=== PATIENT | female | born 1960 | race Caucasian/White ===

== ENCOUNTER 2022-01-24 21:54 | Inpatient (IN) | payer BC, MEDICARE ==
[~2022-01-24] VITALS: Ht 165.1 cm; Wt 84.1 kg
--- OUTSIDE RECORDS SUMMARY | 2022-01-24 21:58 | XMS ---
PreManage Notification: JOSE ANTONIO COY [employer] Associate Events No recent Security Events currently on file CRITERIA MET - PDMP CARE PROVIDERS RUCHI FINK [facility] Current PHONE: Unknown Karan has no Care Guidelines for this patient. EDelia VISIT COUNT (12 MO.) 1 GRACIELA Liang TOTAL 1 NOTE: Visits indicate total known visits. ED/UCC VISIT TRACKING (12 MO.) 01/24/2022 21:55 GRACIELA Dempsey OR TYPE: Emergency COMPLAINT: - RIGHT SIDE FLANK PAIN, SOB INPATIENT VISIT TRACKING (12 MO.) No inpatient visits to display in this time frame [email or web address]
[2022-01-24] MEDS ORDERED: TRAMADOL HCL50 MG PO (22:21)
[2022-01-24] MEDS ORDERED: BENZONATATE100 MG PO (22:21)
[2022-01-24] MEDS ORDERED: ATORVASTATIN CA20 MG PO (22:21)
[2022-01-24] MEDS ORDERED: CELECOXIB200 MG PO (22:21)
[2022-01-24] MEDS ORDERED: TOPIRAMATE25 MG PO (22:21)
[2022-01-24] MEDS ORDERED: OMEPRAZOLE20 MG PO (22:21)
[2022-01-25] MEDS ORDERED: VENTOLIN HFA18 GM INH (01:37)
[2022-01-25] MEDS ORDERED: AZITHROMYCIN500 MG PO (01:37)
--- NOTE | 2022-01-25 04:35 | NUR ---
PT ARRIVED TO [facility] AT 0319. PRADIP DUGAN WAS IN ROOM AND ASSISTED HER TO THE BSC WITH FWW. VS TAKEN AND PT IS ON TELE. PT IS ON 1LNC. 0422-RETURNED TO ROOM TO ADMINISTER IV ABX AND OXYCODONE FOR 8/10 BACK PAIN. ALSO ADMINISTERED ROBITUSSIN FOR COUGH COUGH IS CAUSING HER PAIN. PT IS UNABLE TO TAKE DEEP BREATHS IN AND OUT D/T THE PAIN. RR IS EVEN AND UNLABORED BUT PT STATES SHE FEELS SOB. SHE IS ON 1LNC AT 97%, WILL LEAVE ON O2 AT THIS TIME FOR COMFORT. PT DENIES FURTHER NEEDS AT THIS TIME. CALL LIGHT IS CLOSE AND IV IS INFUSING FINE.
--- NOTE | 2022-01-25 05:15 | NUR ---
PT STATED THAT IT WAS OK FOR PT SON DARRON, AND DAUGHTER SHAYLA TO VISIT WITH STAFF ABOUT HER MEDICAL CARE. PT AWARE THAT THE VISITING POLICY IS 2 VISITORS AT A TIME, BUT THE 2 VISITORS CAN CHANGE OUT THROUHOUT THE DAY. CONCERNED ABOUT HER APPOINTMENT WITH DR FISHMAN TODAY AT 2:45. WILL LET MORNING CHARGE KNOW TO CALL OFFICE. ALSO HAS APPOINTMENT WITH DR RANGEL 02/02/22. NO OTHER NEEDS, CALL LIGHT WITHIN REACH.
--- NOTE | 2022-01-25 05:21 | NUR ---
PRADIP BED MACHINE OPERATOR ADMINISTERED TRAMADOL FOR PAIN.
--- NOTE | 2022-01-25 06:43 | NUR ---
IN ROOM TO CHECK ON PT, SHE WAS GETTING UP TO BSC WITH HELP OF DIEGO PRUITT. IV ABX WAS COMPLETE, SL PT'S IV.
--- NOTE | 2022-01-25 07:40 | NUR ---
RECD REPORT FROM NIGHT RN, PT. RESTING BUT WAKENS EASILY, ASSISTED TO STAND AT EDGE OF BED, 1 PERSON ASSIST WITH GRADUATED CYLINDER FOR URINATION, INDEPENDENT BACK TO BED. BIPAP IN PLACE.
[2022-01-25] MEDS ORDERED: ADULT ASPIRIN R81 MG PO (07:52)
--- NOTE | 2022-01-25 11:00 | NUR ---
NO BED ALARM NEEDED, PT. CALLS FOR ALL NEEDS AND ASSIST. HE SWITCHES FROM BIPAP TO 3 L NC AND BREATHING IS UNLABORED WHEN STILL. DYSPNEA ON EXERTION BUT MAINTAINING. SATS WNL.
--- NOTE | 2022-01-25 11:37 | NUR ---
PATIENT UP TO AMBULATE TO BATHROOM WITH SBA. WARM PACK TO LEFT GROIN.
--- NOTE | 2022-01-25 15:11 | NUR ---
Spoke with Shania and her spouse, Abraham. She is very disheartened as she states she has been declining post her diagnosis of cancer. She was walking, then needed to use a walker, now so painful she requires a wc. She is also upset as she states two new places of cancer were found with a CT when she came in. Pt states she has been trying to get into Dr. Hernandez, Dr. Evangelista, and Dr. Avendano since September. There was a mistake at the PCP office and referrals were not correct. Pt had an appt with Dr. Evangelista today, but she is hospitalized. Dr. Sapp aware and requested Dr. Evangelista see pt in the hospital and he agreed. Pt states she was told by a friend Dr. Avendano is not doing total hips, I let her know that isn't correct. I texted Dr. Avendano he replied he does total hips every Sunday. Pt was pleased as did not want to be referred to [place]. Pt has appts with Dr. Avendano and Dr. Hernandez this month.
--- NOTE | 2022-01-25 16:52 | NUR ---
PT. C/O BREAKTHROUGH PAIN AND SPASMS IN HER LEFT HIP/BACK AREA. RECENT NORCO GIVEN, NO ADDITIONAL PAIN MEDS OTHER THEN ULTRAM TCT DR. MUÑOZ TO REPORT, HE WILL REVIEW AND PLACE ORDERS
--- NOTE | 2022-01-25 17:32 | NUR ---
ORDERS RECD. , PAIN HAS INCREASED IN HER RIGHT FLANK/BACK AREA, HEAT WAS PLACED TO THE AREA, PT. DID TRY AMBULATING IN THE HALLS WITH FAMILY, IT DID NOT MAKE THE PAIN WORSE OR BETTER, FAMILY ASSISTED BACK TO BED AND THEN THE PT. BEGAN TO HAVE SPASMS IN HER RIGHT LOWER BACK AREA, GAVE TORADOL 15 MG IV, SPASMS CONTINUED AND THE SPASMS CONTINUED, SHE TRIED REPOSITIONING AND THIS DID NOT HELP. GAVE ADDITIONAL OXYCODONE 5 MG PO FOR RIGHT LOWER BACK PAIN AND SPASMS. FAMILY AT BEDSIDE. IV ABX GIVEN THIS SHIFT. PT. IS ALERT AND VERY STOIC WITH PAIN. SHE HAS NOT HAD AN APPETITE FOR SOME TIME NOW BUT DENIES NAUSEA. REFUSED ALL 3 MEALS BUT SHE CAN EAT WHAT HER FAMILY WILL BRING HER.
--- NOTE | 2022-01-25 19:10 | NUR ---
SHIFT REPORT RECEIVED FROM DAYSHIFT RN JOHN AT BEDSIDE, pt AWAKE AND RESTING IN BED. IN ROOM, NO NEEDS OR CONCERNS VERBALIZED. CALL LIGHT IN REACH. ON RA, RR EVEN AND UNLABORED. NO DISTRESS NOTED. WILL MONITOR.
--- NOTE | 2022-01-25 22:39 | NUR ---
ASSESSMENT COMPLETE, pt AWAKE AND RESTING IN BED. REPORTS SOME BACK PAIN R/T MUSCLE SPASMS, HEAT PACK IN PLACE. pt DENIES NAUSEA, BOWEL TONES ACTIVE. IV ABX INFUSING DIRECTED, IV SITE WNL. BLOOD RETURN NOTED. VSS, pt DENEIS NEED TO VOID. WILL MONITOR. CALL LIGHT IN REACH. pt DENEIS LIGHTHEADEDNESS AND DIZZINESS WITH MOVEMENT. DAUGHTER REMAINS IN ROOM AND CALL LIGHT IN REACH.
--- NOTE | 2022-01-25 23:00 | NUR ---
pt CONTINUES TO REPORT BACK PAIN R/T MUSCLE SPASMS. DR MUÑOZ UPDATED ON pt'S TOTAL OUTPUT AND INPUT FOR DAYSHIFT UP TO THIS POINT IN TIME WELL pt's WEIGHT. TELEPHONE ORDERS READ BACK FOR IV FLUIDS LACTATED RINGERS @ 75MLS/HR CONTINUOUSLY AND 5MG PO FLEXERIL Q8HPRN FOR MUSCLE SPASMS-DISCUSSED CONFLICTS WITH DAPHNEY FROM [employer].
--- NOTE | 2022-01-25 23:45 | NUR ---
PRN NAUSEA MEDICATION GIVEN ALONG WITH PRN FLEXERIL AND IV MAINTENANCE FLUIDS HUNG AND INFUSING DIRECTED. IV SITE WNL, DAUGHTER IN ROOM. RECENT OUTPUT OF 100MLS.
--- NOTE | 2022-01-26 01:12 | NUR ---
ROUNDED ON pt, pt RESTING IN BED WITH EYES CLOSED. RR EVEN AND UNLABORED, ON RA. DAUGHTER IN ROOM, DENIES NEEDS OR CONCERNS. CALL LIGHT IN REACH.
--- NOTE | 2022-01-26 02:15 | NUR ---
IN TO GET VITALS, ALERTED RN TO LOWER SPO2 READING, RN PROVIDED PT WITH O2, HEAT PACK PROVIDED, NO FURTHER NEEDS AT THIS TME
--- NOTE | 2022-01-26 03:00 | NUR ---
INFORMED BY CAREER INFORMATION SPECIALIST, SPO2 IN 80'S, IN ROOM TO ASSESS. APPEARS pt HAS ON GEL/FALSE NAILS, pt PLACED ON 6LNC. pt AWOKE EASILY TO VOICE. ENCOURAGED DEEP BREATHING, pt VERBALIZED UNDERSTANDING. pt RETURNED TO SLEEP, AFTER A FEW MINUTES, COUGING WAS NOTED AND pt REPORTS RETURN OF BACK PAIN/SPASM. CPOX IN PLACE TO TOE AND pt PLACED BRIEFLY ON OXYMASK D/T ANXIETY. pt SITTING UP ON EDGE OF BED, RITCHIE EVERETT ALSO IN ROOM. pt RETURNED TO BASELINE, THERAPEUTI COMMUNICATION PROVIDED AND DAUGHTER AT BEDSIDE. pt BACK IN BED AFTER SEVERAL MINUTES, DENIES NEED TO VOID. 2LNC IN PLACE D/T DESATS W/ PAIN MEDICATION. BALDDER SCANNED FOR 99MLS. PRN PAIN MEDICAITON GIVEN, SEE EMAR.
--- NOTE | 2022-01-26 04:00 | NUR ---
DR MUÑOZ MADE AWARE OF pt'S URINE OUTPUT THIS SHIFT AND BLADDER SCAN RESULT, TELEPHONE ORDER READ BACK TO TITRATE MAINTENANCE FLUIDS FROM 75MLS/HR TO 125MLS/HR, GIVE X1 500MLS BOLUS OF LR OVER 1 HR, TIRATE PRN FLEXERIL TO 10MGPO Q8HPRN, AND OKAY TO GIVE LIDOCAINE PATCH DAILY STARTING NOW.
--- NOTE | 2022-01-26 04:34 | NUR ---
WHILE IN ROOM TO HANG IV FLUID BOLUS, pt UP TO VOID. 175MLS CONCENTRATED YELLOW URINE NOTED. pt BACK TO BED, 2LNC REMAINS IN PLACE. AFTER STARTING IV BOLUS, IV SITE WAS NOTED TO BE LEAKING, HUB TIGHTENED AND NEW DRESSING PLACED. LEAKING CONTINUED, pt REPORTS "VERY HARD" IV START, DYE WINCH OPERATOR MONCHO TO ATTEMPT NEW IV. LIDOCAINE PATCH TO RIGHT LOWER BACK AT THIS TIME. pt TIRATED TO 3LNC D/T SPO2 IN 89%, WILL MONITOR.
--- NOTE | 2022-01-26 06:00 | NUR ---
NEW IV PLACED BY MONCHO DUGAN. 22 G TO RIGHT HAND, IV ABX RESUMED. IV SITE WNL. CALL LIGHT IN REACH AND HEAT PACK IN PLACE. PER pT REQUEST.
--- NOTE | 2022-01-26 06:29 | NUR ---
ROUNDED ON pt, pt AWAKE AND RESTING IN BED. IV SITE REMAINS WNL. NO NEEDS OR CONCERNS VERBALIZED, CALL LIGHT IN REACH.
--- NOTE | 2022-01-26 06:58 | NUR ---
DR MUÑOZ MADE AWARE OF pt's TOTAL URINE OUTPUT FOR SHIFT, TOTAL OUTPUT 175MLS. PER WEIGHT PARAMETERS, pt TO VOID 504MLS. NO NEW ORDERS RECEIVED AT THIS TIME.
--- NOTE | 2022-01-26 07:32 | NUR ---
pt RESTING IN BED, 2-2.5LNC IN PLACE, SPO2 MID 90'S, HR WNL. MAINTENANCE FLUIDS RESUMED WITH NEW IV RATE (125MLS/HR), IV SITE REMAINS WNL. CALL LIGHT IN REACH.
--- NOTE | 2022-01-26 08:41 | NUR ---
MORNING ASSESSMENT COMPELTED, PT C/O BACK SPASMS AND HIP PAIN, REQUESTED FLEXERIL. MED GIVEN WITH SIP OF WATER, OK'D WITH OR CHARGE NURSE. WENT OVER PROCEDURE CONSENT FORM, PT SIGNED. PT DENIES FURTHER NEEDS AT THIS TIME. CALL LIGHT WITHIN REACH.
[2022-01-26] MEDS ORDERED: VENTOLIN HFA18 GM INH (09:43)
--- NOTE | 2022-01-26 11:50 | NUR ---
01/26/22 1150 Kassidy Malloy 1144 PATIENT ARRIVES TO PACU AWAKE BUT DROWSY, COUGHING. RESP SLIGHTLY LABORED WITH COUGH. MASK AT 10 LITERS. 1148 PATIENT CONTINUES TO COUGH, BUT IMPROVING. RESP CONTINUE TO BE SLIGHTLY LABORED, MASK DECREASED TO 6 LITERS, SATS 99%. PATIENT DENIES PAIN.
--- NOTE | 2022-01-26 12:31 | NUR ---
PT BACK TO ROOM FOR OR, ALERT AND ORIENTED. VS STABLE. CALL LIGHT WITHIN REACH.
--- NOTE | 2022-01-26 14:17 | NUR ---
CHECKING ON PT-RT AYE IN RM GIVING BREATHING TREATMENT. WILL CHECK BACK
--- NOTE | 2022-01-26 14:55 | NUR ---
PT. DENIES SOB. SHE C/O BACK SPASMS THAT ARE TOLERABLE AT THIS TIME. ON 4L NC AND O2 SAT IS 94%. RR IS 20. TOLERATING PO FLUIDS FAMILY AT BEDSIDE. PT. DENIES FURTHER NEEDS.
--- NOTE | 2022-01-26 15:46 | NUR ---
PT RESTING QUIETLY IN BED, EASILY AWAKENS. OCCASIONAL COUGH, DENIES SOB. DENIES NEEDS AT THIS TIME. CALL LIGHT WITHIN REACH.
--- NOTE | 2022-01-26 16:07 | NUR ---
PT RESTING IN BED, AWAKE AND ALERT, VISITING WITH FAMILY. REQUESTING FLEXERIL FOR MUSCLE SPASMS. DENIES FURTHER NEEDS AT THIS TIME. CALL LIGHT WITHIN REACH.
--- NOTE | 2022-01-26 16:15 | NUR ---
Attempted to see pt, Dr. Del Toro in with pt.
--- NOTE | 2022-01-26 17:31 | NUR ---
PT SITTING UP IN BED, VISITING WITH FAMILY. ASSISTED TO RESTROOM. DENIES FURTHER NEEDS AT THIS TIME.
--- NOTE | 2022-01-26 17:38 | NUR ---
PT IS SITTING UP IN BED WATCHING TV. I&O AND VS CHARTED CALL LIGHT WITHIN REACH NO FURTHER TASKS AT THIS TIME
--- NOTE | 2022-01-26 18:22 | NUR ---
MED REC COMPLETE
--- NOTE | 2022-01-26 19:20 | NUR ---
SHIFT REPORT RECEIVED FROM DAYSHIFT RN SERA AND JOCELYN, pt RESTING QUIETLY IN BED ON 3.5LNC, CPOX IN PLACE. SPO2 92-93%, HR 79. RR EVEN AND UNLABORED, NO DISTRESS NOTED. IV SITE SALINE LOCKED, IN ROOM. CALL LIGHT IN REACH.
--- NOTE | 2022-01-26 20:23 | NUR ---
SCHEDULED IV ABX INFUSING DIRECTED, IV SITE WNL. NO FURTHER NEEDS OR CONCERNS. CALL LIGHT IN REACH AND FAMILY IN ROOM.
--- NOTE | 2022-01-26 21:40 | NUR ---
ASSESSMENT COMPLETE, SCHEDULED MEDS GIVEN (SEE EMAR). pt AWOKE TO VOICE, 4LNC IN PLACE- TITRATED TO 3LNC. BEDSIDE CPOX ON, LUNG SOUNDS CLEAR WITH SOME LIGHT SCATTERED WHEEZES. RT NILAM IN ROOM FOR SCHEDULED BREATHING TREATMENT, NO DISTRESS NOTED. RR EVEN AND UNLABORED, VSS. pt DENEIS PAIN AND NAUSEA, DENIES NEED FOR BOTH PAIN AND NAUSEA MEDICATION AT THIS TIME. WILL MONITOR. NO FURTHER NEEDS, IV SITE WNL AND FLUSHES EASILY. SALINE LOCKED. DAUGHTER ALSO REMAINS IN ROOM, FRESH WATER PROVIDED, CALL LIGHT IN REACH.
--- NOTE | 2022-01-26 23:30 | NUR ---
scheduled flexeril given, see emar. pt awoke to voice, sba with fww to void and back to bed. voided 100mls and had unmeasured void x1. cpox in place, spo2 mid 90's on 2.5lnc, hr wnl. call light in reach.
--- NOTE | 2022-01-27 01:11 | NUR ---
ROUNDED ON pt, pt AWAKE AND WATCHING TV. SPO2 LOW 90'S ON 2.5LNC, HR 70'S. NO DISTRESS NOTED, NEW HEAT PACK TO LEFT THIGH PER pt REQUEST FOR REPORTED 7/10 "JOINT PAIN", pt DENIES NEED FOR PHARMACOLOGICAL INTERVENTION. CALL LIGHT IN REACH.
--- NOTE | 2022-01-27 01:54 | NUR ---
CALL MADE TO EDILSON FROM IMAGING REGARDING SCHEDULED BODY SCAN IN AM, PER MARY- pt CAN EAT AND DRINK TOLERATED. NO MINIMUM INTAKE REQUIRED BEFORE SCAN. POST SCAN, pt IS TO DRINK APPROX 1 LITER OF FLUID.
--- NOTE | 2022-01-27 02:00 | NUR ---
in to get vital with rn, water topped off, no further needs
--- NOTE | 2022-01-27 02:17 | NUR ---
SCHEDULED IV ABX INFUSING DIRECTED. IV SITE WNL, FLUSHES EASILY. pt DENEIS PAIN AND NAUSEA, NO NEEDS OR CONCERNS AT THIS TIME. CALL LIGHT IN REACH, pt DENIES NEED TO VOID. WILL MONITOR.
--- NOTE | 2022-01-27 03:24 | NUR ---
iv pump alarming, iv abx completed and pump cleared. iv site wnl, saline locked. pt up sba with fww to void, 400mls output noted. pt then brushed teeth and went back to bed- all on ra. spo2 low 90's. 2lnc back in place d/t desating when asleep. daughter remains at bedside. call light in reach. warm blanket and fresh water provided.
--- NOTE | 2022-01-27 05:03 | NUR ---
VSS AND I&O'S COMPLETE. pt ON 2LNC, RR EVEN AND UNLABORED. FRESH WATER PROVIDED AND CALL LIGHT IN REACH. DAUGHTER ALSO REMAINS IN ROOM.
--- NOTE | 2022-01-27 06:30 | NUR ---
SCHEDULED FLEXERIL GIVEN, SEE EMAR. pt UP TO VOID SBA WITH FWW AND BACK TO BED. STEADY ON FEET. 2LNC RESUMED AND CALL LIGHT IN REACH.
--- NOTE | 2022-01-27 08:22 | NUR ---
MORNING ASSESSMENT COMPLETE. PT AWAKE AND ALERT VISITING WITH FAMILY. C/O 6/10 PAIN IN BACK AND LEFT HIP. GIVEN PAIN MEDICATIONS. DENIES FURTHER NEEDS AT THIS TIME. CALL LIGHT WITHIN REACH.
--- NOTE | 2022-01-27 10:39 | NUR ---
PT RESTING QUIETLY IN BED. EASILY AWAKENS. AT BEDSIDE. DENIES NEEDS AT THIS TIME. CALL LIGHT WITHIN REACH.
--- NOTE | 2022-01-27 11:23 | NUR ---
INFORMED STATED WHILE PT SLEPT ON RA O2 SAT DROPPED TO 83% FOR 3 MINUTES UNTIL PT AWOKE SATS THEN UP TP 92%. WHILE IN PT ON RA O2 SATS 90%. HAD PT PUT NC 2LPM ON, O2 SATS 93%. HOME O2 QUALIFY ALREADY ORDERED.
--- NOTE | 2022-01-27 16:02 | NUR ---
FACESHEET, RX FOR OXYGEN, O2 QUALIFIER, H&P AND PROGRESS NOTES FAXED TO [facility].
[2022-01-27] MEDS ORDERED: AMOX TR-K CLV1 EAC1 PO (16:06)
[2022-01-27] MEDS ORDERED: CYCLOBENZAPRINE10 MG PO (16:07)
[2022-01-27] MEDS ORDERED: HYDROMORPHONE HC4 MG PO (16:10)
[2022-01-27] MEDS ORDERED: BENZONATATE100 MG PO (16:14)
--- NOTE | 2022-01-27 17:18 | EKG ---
[facility] [address] [facility] [place] [address] Signed Sinus rhythm with occasional premature ventricular complexes Right superior axis deviation Right ventricular hypertrophy ST \T\ T wave abnormality, consider anterior ischemia Abnormal ECG No previous ECGs available Confirmed by JOLIE MUÑOZ MD ([id number]) on 01/27/2022 5:18:39 PM Electronically Signed By: JOLIE MUÑOZ MD 01/27/22 1718 PATIENT NAME: JOSE ANTONIO COY Electrocardiogram DATE OF : 58 PHYSICIAN: JOLIE MUÑOZ MD REPORT #: [id number] REPORT IS CONFIDENTIAL AND NOT TO BE RELEASED WITHOUT AUTHORIZATION
--- NOTE | 2022-01-27 18:20 | NUR ---
WENT OVER DISCHARGE INSTRUCTIONS. PT AND FAMILY VERBALIZED UNDERSTANDING, ALL QUESTIONS ANSWERED. IV REMOVED, CATHETER INTACT. INSTRUCTED PT AND FMAILY ON O2 TANK USE, VERBALIZED UNDERSTANDING. PT TAKEN OUT VIA WC WITH RN.
--- NOTE | 2022-01-27 21:14 | CONS ---
[facility] [address] [place], [place] [address] Signed DATE OF CONSULTATION: 01/25/2022 REQUESTING PHYSICIAN: Dr. Sapp. PROBLEM: Recently biopsy-proven left upper outer quadrant breast cancer less than 2 cm and new-onset right perihilar neoplasm with postobstructive pneumonia, bilateral adrenal nodules, and left hip and right posterior thoracic pain. 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 Her appointment was today. She was admitted last night, having presented to the emergency room with rather severe right-sided posterior thoracic pain and increased work of breathing and shortness of breath with saturations in the 88% to 89% level. Her evaluation by Dr. Alva, included a CT scan of the chest as well as chest x-ray. The chest x-ray showed volume loss in the right lower lobe and minimal left basilar atelectasis and normal heart size. Volume loss was considered related to pneumonia with mucous plugging. A CT scan was performed, which shows right lower mediastinal and hilar mass highly suspicious for malignancy. Additionally, she was noted to have right and left adrenal neoplasm and supraclavicular adenopathy. She was admitted by Dr. Sapp and interventions have included supplemental oxygen and home oxygen evaluation. Antibiotic coverage with Unasyn and management of left hip pain. Notably, her left hip has been considered "[id number]" and evaluation by Dr. Avendano for possible hip replacement therapy has been considered. Notably, the patient sees Dr. Saulo Fink in [facility]; the patient lives in [place], but is highly dedicated to Dr. Fink, whom she saw prior to his change of practice location to [facility]. Currently, the patient still has right posterior thoracic pain. Her medications to address have included oxycodone and Toradol. To my knowledge, she has not had any bronchodilator therapy since admission. The patient denies any hemoptysis. She has had some shortness of breath and that includes today. Her laboratory studies at admission showed a white count of 11.6, hematocrit of 42.5, Electronically Signed By: SAUL FISHMAN MD 01/27/22 2114 PATIENT NAME: JOSE ANTONIO COY CONSULTATION DATE OF : 58 REPORT #: [id number] PHYSICIAN: SAUL FISHMAN MD PCP: SAULO FINK DO REPORT IS CONFIDENTIAL AND NOT TO BE RELEASED WITHOUT AUTHORIZATION [facility] [address] [place], [place] [address] Signed and platelets 287,000. Chem profile was essentially normal. Creatinine 1.05. BNP was 57. Troponin 6 (normal). COVID serology is negative. REVIEW OF SYSTEMS: She is primarily complaining of right posterior thoracic pain. She does not have too much shortness of breath at this time. She has had left hip pain chronically related to degenerative disease (presumably). PHYSICAL EXAMINATION: GENERAL: Somewhat obese white woman, who is accompanied by her and daughter. VITAL SIGNS: Temperature 98.6, pulse of 86, blood pressure 118/66, O2 saturation on 2 L nasal cannula is 98%. Trachea is midline. I detect no cervical adenopathy. She has no hoarseness. I detect no cervical or supraclavicular adenopathy, though she does have obesity. CHEST: Shows an end-expiratory wheeze on the right side. Left side is clear. ABDOMEN: Obese, but soft. There is no evidence of ascites or palpable mass. EXTREMITIES: Show no clubbing, cyanosis, or edema. LAB AND IMAGING STUDIES: As previously noted. ASSESSMENT: I discussed with the patient and her family in detail findings at hand which include a large left perihilar mass. I have reviewed the x-rays thoroughly and almost certainly she has a postobstructive atelectatic segment of the right lower lobe, possibly neoplasm within the parenchyma itself. The left side appears normal. The patient has intermittently smoked over many years. She recently is considered to have quit smoking. It is notable that the patient's father was a uranium land examiner in [place]. She has a brother, who is apparently alive and well. Most likely this represents primary lung carcinoma and given its peribronchiolar location high probability of small cell carcinoma, though adenocarcinoma or squamous cell carcinoma was certainly possible as well. There is very likely distant metastatic disease to the adrenals and certainly regional adenopathy of the peritracheal lymph node chains and elsewhere. In general terms, this would be considered an incurable malignancy. As regard to the left upper outer quadrant breast mass, she has no evidence of left or right axillary adenopathy and the left breast mass is nonpalpable based on its presumptive location. I think it is unrelated to the current cancer of the lung. Tissue biopsy may guide therapy in this situation, specifically identification of [id number] versus small cell carcinoma. As there was no readily available lymph Electronically Signed By: SAUL FISHMAN MD 01/27/22 6069 PATIENT NAME: JOSE ANTONIO COYN CONSULTATION DATE OF : 58 REPORT #: [id number] PHYSICIAN: SAUL FISHMAN MD PCP: SAULO FINK DO REPORT IS CONFIDENTIAL AND NOT TO BE RELEASED WITHOUT AUTHORIZATION [facility] [address] [place], [place] [address] Signed node clinically detectable, consideration would be made for flexible bronchoscopy with endobronchial biopsy or transbronchial biopsy. The risks of bleeding, infection, and so forth were reviewed with her in that regard. The patient has not been eating too well in particular during her hospitalization. I will review this further with Dr. Del Toro, who is assuming her care this evening. I will additionally order medications that may be beneficial for her current pain in the right posterolateral chest wall. Strong consideration should be given to performance of a bone scan. The PET scan may be beneficial for soft tissue parenchymal assessment of tumor burden, but she is at increased risk of bony metastasis as well given the current findings. We discussed all this in detail. MD VERNON Kennedy/MODL /[id number] cc: DO Tomás Soria MD Cynthia Rasch, MD Copies: SAULO FINK LOHITH VEERAPPA MD RASCH, CYNTHIA MD ~ Electronically Signed By: SAUL FISHMAN MD 01/27/22 2114 PATIENT NAME: JOSE ANTONIO COY CONSULTATION DATE OF : 58 REPORT #: [id number] PHYSICIAN: SAUL FISHMAN MD PCP: SAULO FINK DO REPORT IS CONFIDENTIAL AND NOT TO BE RELEASED WITHOUT AUTHORIZATION
--- NOTE | 2022-01-29 14:20 | OR ---
[facility] [address] [place], [place] [address] Signed DATE OF OPERATION: 01/26/2022 SURGEON: Saul Fishman MD PREOPERATIVE DIAGNOSES: 1. Right large mediastinal mass with postobstructive consolidation of right lower lobe. 2. Recently diagnosed small left upper outer quadrant breast cancer. 3. Mediastinal adenopathy including peritracheal adenopathy and adrenal metastatic disease bilaterally. POSTOPERATIVE DIAGNOSES: 1. Right large mediastinal mass with postobstructive consolidation of right lower lobe. 2. Recently diagnosed small left upper outer quadrant breast cancer. 3. Mediastinal adenopathy including peritracheal adenopathy and adrenal metastatic disease bilaterally. 4. Obvious intraluminal neoplastic effect and bronchus intermedius. PROCEDURE: Flexible bronchoscopy with biopsies of bronchus intermedius and surrounding soft tissue. ANESTHESIA: General endotracheal, Wili Rojas CRNA INDICATIONS: This 61-year-old white woman was admitted by Dr. Sapp and care now assumed by Dr. Muñoz. She recently underwent image guided biopsy of the upper outer quadrant small breast lesion, which was proven to be infiltrating ductal carcinoma. I was to see her in the office yesterday. The night before, however, she was admitted to the hospital by Dr. Sapp with shortness of breath and dyspnea, which have been progressive over the past several months. Chest x-ray showed right lower lobe infiltrative changes consistent with consolidation. A CT scan of the chest was obtained which showed a large perihilar mass with probable postobstructive atelectasis of the right lower lobe. Additionally, she had mediastinal adenopathy and right peritracheal adenopathy, highly suspicious for metastatic lung cancer. Additionally noted were bilateral adrenal masses that are large. Her dominant complaint is dyspnea and fatigue, but also left hip pain related to chronic arthritis and right posterior thoracic and rib pain of uncertain etiology. Given the findings on CT scan, it is highly probable that she has primary lung cancer Electronically Signed By: SAUL FISHMAN MD 01/29/22 1420 PATIENT NAME: JOSE ANTONIO COY OPERATIVE REPORT DATE OF : 58 REPORT #: [id number] PHYSICIAN: SAUL FISHMAN MD PCP: ROBBY FINK DO REPORT IS CONFIDENTIAL AND NOT TO BE RELEASED WITHOUT AUTHORIZATION [facility] [address] [place] [id number] Signed and additional finding of breast cancer. I think it is unlikely that the breast lesion is the source of pulmonary problem. Notably, the patient has been an episodic smoker for a number of years. Her father was a uranium miner assistant in [place]. She is admitted at this time to undergo flexible bronchoscopy and biopsy of the lesion to ascertain whether this represents a primary lung cancer (most likely it does) and whether it is non-small cell or small cell cancer, which would better direct palliative therapy as appropriate. The risk of bleeding, infection, worsening of pulmonary situation, and so forth were all reviewed with the patient and her , they understand and wished to proceed. FINDINGS: The left mainstem bronchus and segmental and subsegmental bronchi appeared normal. On the right side, the tumor was quite obvious and protruding into the lumen, particularly just proximal to the right upper lobe bronchus and extending down to the bronchus intermedius. Passage of the bronchoscope into the right lower lobe segmental bronchi was undertaken and visualization of the right middle lobe bronchus and right upper lobe bronchus as well. Extreme crowding was noted related to tumor. Multiple biopsies were obtained of neoplastic tissue. There was no untoward bleeding. There was no evidence of purulence in the right lower lobe segmental bronchi notably and I believe that her infiltrative appearance is a postobstructive type lung collapse. DESCRIPTION OF PROCEDURE: The patient was brought to the operating room, given a general endotracheal anesthetic. Size 8 endotracheal tube was used. The appropriate adapter was applied to the tube. An Olympus flexible bronchoscope was passed through the adapter into the airway and the distal trachea identified as normal. The florencio appeared normal. The scope was advanced to the left side and the left mainstem and left upper and left lower lobe segmental bronchi were normal. Subsegmental evaluation showed no sign of abnormality there. The scope was withdrawn to the florencio and reintroduced to the right mainstem bronchus, which had an obvious protrusion of submucosal neoplasm. This was distorting to the soft tissue locally. With various manipulation, the scope was passed down the bronchus intermedius into the right lower lobe bronchus where segmental bronchi appeared to be without sign of purulence or foreign body. The scope was withdrawn to the bronchus intermedius, which was very crowded with neoplastic effect. Examination to identify the middle lobe bronchus was slightly challenging, but two segmental bronchi corresponding to the middle lobe were identified. Scope was withdrawn and rotated and the upper lobe bronchus with three segmental bronchi likely discerned. Biopsies were obtained of the dominant mass in several levels. Multiple biopsies were obtained and I believe good tissue for diagnosis has been obtained. Irrigation was Electronically Signed By: SAUL FISHMAN MD 01/29/22 1420 PATIENT NAME: JOSE ANTONIO COY OPERATIVE REPORT DATE OF : 58 REPORT #: [id number] PHYSICIAN: SAUL FISHMAN MD PCP: ROBBY FINK DO REPORT IS CONFIDENTIAL AND NOT TO BE RELEASED WITHOUT AUTHORIZATION [facility] [address] [address] Signed undertaken with saline solution and suctioned free. There was no untoward bleeding. The scope was withdrawn. Careful and deliberate extubation was undertaken ultimately allowing for the patient to be transferred to the recovery room in good condition. BLOOD LOSS: Minimal. COMPLICATIONS: None. MD VERNON Kennedy/NARESH /[id number] cc: MD Gilberto Rose MD, PH.D. MD Tomás Francis MD Frank E Szumski, DO Copies: OTTO RANGEL MD,GILBERTO SAPP,INGRID MUÑOZ,ROBBY CONCEPCION MD, DO ~ Electronically Signed By: SAUL FISHMAN MD 01/29/22 1420 PATIENT NAME: JOSE ANTONIO COY OPERATIVE REPORT DATE OF : 58 REPORT #: [id number] PHYSICIAN: SAUL FISHMAN MD PCP: ROBBY FINK DO REPORT IS CONFIDENTIAL AND NOT TO BE RELEASED WITHOUT AUTHORIZATION
--- NOTE | 2022-02-01 07:38 | PATH ---
[facility] [address] [place], [place] [address] Signed SPECIMEN(S): A RIGHT BRONCHUS INTERMEDIUS BIOPSY SPECIMEN SOURCE: A. RIGHT BRONCHUS INTERMEDIUS BIOPSY CLINICAL HISTORY: Right peribronchial mass. Pneumonia. FINAL PATHOLOGIC DIAGNOSIS: Right bronchus intermedius, peribronchial mass, biopsy: - Non-small cell lung carcinoma, favor adenocarcinoma. COMMENT: Sections demonstrate a poorly differentiated carcinoma growing in cords, nests, and single cells in the lamina propria of the bronchial mucosa. The tumor cells have variably clear cytoplasm, nuclear pleomorphism, and frequent mitoses, but no keratinization or definitive gland formation is seen. A panel of immunohistochemical stains (with appropriately staining controls) were performed. The tumor cells are positive for CK7, TTF1, and Napsin A, but the tumor does show patchy, weak p63 and faint GATA3 positivity as well. The tumor cells are negative for CK5/6 and mammaglobin. Overall given the combined morphologic and immunophenotypic profile, lung adenocarcinoma is favored. The recently diagnosed left breast invasive ductal carcinoma ([id number]) was noted and those slides were reviewed. Consideration was given to a metastatic ductal carcinoma, but the immunohistochemical profile is more supportive of a lung adenocarcinoma. ALK/EGFR/ROS1 testing is recommended. Please contact [facility] for testing to be performed. As part of [facility]' Quality Improvement Program, this case was reviewed by another member of our pathology staff. The results were called to Dr. John on 01/27/2022. NAL:jorden:C1NR MICROSCOPIC EXAMINATION: Histologic sections of all submitted blocks are examined by light microscopy. These findings, together with the gross examination, support the pathologic diagnosis. NAL:em PATIENT NAME: JOSE ANTONIO COY PATHOLOGY DATE OF : 58 REPORT #: [id number] PHYSICIAN: YAN PATHOLOGY PCP: ROBBY FINK DO REPORT IS CONFIDENTIAL AND NOT TO BE RELEASED WITHOUT AUTHORIZATION [facility] [address] [place], [place] [address] Signed GROSS DESCRIPTION: The specimen, labeled "TD, A," and designated on the requisition "right bronchus intermedius biopsy, peribronchial mass," is received in formalin and consists of calvert-pink soft tissue fragments measuring 1.7 x 0.8 x 0.3 cm in aggregate. Specimen is filtered and entirely submitted in cassette A1. AT (under the direct supervision of a pathologist) The Gross Description was prepared using a voice recognition system. The report was reviewed for accuracy; however, sound-alike word errors, addition and/or deletions may occur. If there is any question about this report, please contact Client Services. ADDITIONAL NOTES: Immunohistochemical and/or in situ hybridization studies were performed on this case with the appropriate positive controls that react as expected. This test was developed and its performance characteristics determined by [facility]. It has not been cleared or approved by the U.S. Food and Drug Administration. The FDA has determined that such clearance or approval is not necessary. This test is used for clinical purposes. It should not be regarded as investigational or for research. [facility] is certified under the Clinical Laboratory Improvement Amendments of 1988 (CLIA) as qualified to perform high complexity clinical laboratory testing. This assay has not been validated for specimens that have been decalcified. PERFORMING LABORATORY: The technical component was performed by [facility], [address] [place] [id number] (CLIA# [id number]). Professional interpretation was performed by [facility], [address] [facility] [place] [address], [place] [address] (CLIA# [id number]). Diagnostician: Massiel Nava MD Pathologist Electronically Signed 02/01/2022 Copies: PATIENT NAME: JOSE ANTONIO COY PATHOLOGY DATE OF : 58 REPORT #: [id number] PHYSICIAN: YAN PATHOLOGY PCP: ROBBY FINK DO REPORT IS CONFIDENTIAL AND NOT TO BE RELEASED WITHOUT AUTHORIZATION [facility] [address] [place], [place] [address] Signed ~ PATIENT NAME: JOSE ANTONIO COY PATHOLOGY DATE OF : 58 REPORT #: [id number] PHYSICIAN: TIMOTHYYTE PATHOLOGY PCP: ROBBY FINK DO REPORT IS CONFIDENTIAL AND NOT TO BE RELEASED WITHOUT AUTHORIZATION
== END 2022-01-27 18:10 | disposition home or self-care (01) | DRG 180 ==
LOC: ED 21:54 → MS 21:56
PROVIDERS: Surgery; ADMIT Internal Medicine; ATTEND Internal Medicine
PROC: 0BB48ZX Excision of Right Upper Lobe Bronchus, Via Natural or Artificial Opening Endoscopic, Diagnostic (ICD-10-PCS; 2022-01-26)
PROC: 0BB58ZX Excision of Right Middle Lobe Bronchus, Via Natural or Artificial Opening Endoscopic, Diagnostic (ICD-10-PCS; principal; 2022-01-26 10:31)
DX: C34.11 Malignant neoplasm of upper lobe, right bronchus or lung (principal); J18.9 Pneumonia, unspecified organism; J96.01 Acute respiratory failure with hypoxia; C74.91 Malignant neoplasm of unspecified part of right adrenal gland; C34.2 Malignant neoplasm of middle lobe, bronchus or lung; Z20.822 Contact with and (suspected) exposure to COVID-19; C50.412 Malignant neoplasm of upper-outer quadrant of left female breast; E78.5 Hyperlipidemia, unspecified; E66.9 Obesity, unspecified; K21.9 Gastro-esophageal reflux disease without esophagitis; M19.90 Unspecified osteoarthritis, unspecified site; Z90.710 Acquired absence of both cervix and uterus; R91.8 Other nonspecific abnormal finding of lung field; M25.552 Pain in left hip; R59.9 Enlarged lymph nodes, unspecified; G89.3 Neoplasm related pain (acute) (chronic); M89.552 Osteolysis, left thigh; Z87.891 Personal history of nicotine dependence; Z79.899 Other long term (current) drug therapy
CPT/HCPCS: 00520; 36415; 71045; 71260; 73502; 78306; 80048; 83880; 84484; 85025; 85379; 87502; 93005; 93010; 94640; 94760; 94761; 94762; 99285-25; A9270; A9503; J0295; J0330; J1100; J1650; J1885; J2001; J2405; J2704; J3010; J7121; Q9967; U0003

== ENCOUNTER 2022-02-03 12:46 | Inpatient (IN) | payer BC, MEDICARE ==
[~2022-02-03] VITALS: Ht 165.1 cm; Wt 90.4 kg
[~2022-02-03 12:46] MED LIST: ADULT ASPIRIN R81 MG PO; AMOX TR-K CLV1 EAC1 PO; ATORVASTATIN CA20 MG PO; AZITHROMYCIN500 MG PO; BENZONATATE100 MG PO; CELECOXIB200 MG PO; CYCLOBENZAPRINE10 MG PO; HYDROMORPHONE HC4 MG PO; OMEPRAZOLE20 MG PO; TOPIRAMATE25 MG PO; TRAMADOL HCL50 MG PO; VENTOLIN HFA18 GM INH
--- OUTSIDE RECORDS SUMMARY | 2022-02-03 12:48 | XMS ---
PreManage Notification: JOSE ANTONIO COY Security Surgical Supervisor Events No recent Security Events currently on file [facility] CARE PROVIDERS RUCHI FINK [facility] Current PHONE: Unknown Karan has no Care Guidelines for this patient. Dalia VISIT COUNT (12 MO.) 2 [facility] TOTAL 2 NOTE: Visits indicate total known visits. ED/UCC VISIT TRACKING (12 MO.) 02/03/2022 12:46 [facility] OR TYPE: Emergency COMPLAINT: - L HIP PAIN 01/24/2022 21:55 [facility] OR TYPE: Emergency COMPLAINT: - RIGHT SIDE FLANK PAIN, SOB INPATIENT VISIT TRACKING (12 MO.) 01/25/2022 18:10 [facility] OR TYPE: Medical Surgical COMPLAINT: - POST OBSTRUCTIVE PNEUMONIA DIAGNOSES: - Acquired absence of both cervix and uterus - Pain in left hip - Pneumonia, unspecified organism - Malignant neoplasm of upper lobe, right bronchus or lung - Obesity, unspecified - Contact with and (suspected) exposure to COVID-19 - Other guest relations manager (current) drug therapy - Malignant neoplasm of unspecified site of left female breast - Other group home (current) drug therapy - Contact with and (suspected) exposure to COVID-19 - Unspecified osteoarthritis, unspecified site - Other nonspecific abnormal finding of lung field - Personal history of nicotine dependence - Malignant neoplasm of middle lobe, bronchus or lung - 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 - Malignant neoplasm of upper-outer quadrant of left female breast - Malignant neoplasm of upper-outer quadrant of left female breast - Personal history of nicotine dependence - Hyperlipidemia, unspecified - Gastro-esophageal reflux disease without esophagitis - Malignant neoplasm of upper lobe, right bronchus or lung - Obesity, unspecified - Neoplasm related pain (acute) (chronic) - 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 - Acute respiratory failure with hypoxia - Gastro-esophageal reflux disease without esophagitis - Enlarged lymph nodes, unspecified - Acute respiratory failure with hypoxia - Shortness of breath - Hyperlipidemia, unspecified - Enlarged lymph nodes, unspecified - Pneumonia, unspecified organism - Neoplasm related pain (acute) (chronic) - Acquired absence of both cervix and uterus - Unspecified osteoarthritis, unspecified site - Osteolysis, left thigh - Malignant neoplasm of middle lobe, bronchus or lung - Osteolysis, left thigh - Pain in left hip - Other nonspecific abnormal finding of lung field [email or web address]
--- NOTE | 2022-02-03 15:35 | EKG ---
[facility] [address] [facility] [place] [address] Signed Sinus rhythm with occasional premature ventricular complexes Left axis deviation Inferior-posterior infarct , age undetermined Abnormal ECG When compared with ECG of 24-JAN-2022 22:06, Inferior-posterior infarct is now present Confirmed by JOLIE MUÑOZ MD ([id number]) on 02/03/2022 3:35:37 PM Electronically Signed By: JOLIE MUÑOZ MD 02/03/22 1535 PATIENT NAME: JOSE ANTONIO COY Electrocardiogram DATE OF : 58 PHYSICIAN: JOLIE MUÑOZ MD REPORT #: [id number] REPORT IS CONFIDENTIAL AND NOT TO BE RELEASED WITHOUT AUTHORIZATION
--- NOTE | 2022-02-05 08:09 | OR ---
[facility] [address] [place], [place] [address] Signed DATE OF OPERATION: 02/04/2022 SURGEON: Ernestine Avendano MD PREOPERATIVE DIAGNOSIS: Pathologic fracture, left hip. POSTOPERATIVE DIAGNOSIS: Pathologic fracture, left hip. PROCEDURES PERFORMED: 1. Left bipolar hemiarthroplasty. 2. Biopsy of lytic bone lesion. PHARMACOVIGILANCE SCIENTIST: MANUELITO Junior. Maria Teresa was present and critical for all portions of the procedure. ANESTHESIA: Spinal. BLOOD LOSS: 250 mL. IMPLANTS: Pancho Echo bipolar stem, size 7 cemented, 45 mm cup and -3 head. BRIEF HISTORY: Jose Antonio is a 61-year-old female, recently diagnosed with probable breast cancer and lung cancer. She was noted to have a large lesion in the left femoral neck, but was ambulating well. She had increasing pain, presented to our office yesterday, where we admitted her directly to the ER for her pain control and radiographs. The radiographs did show that the femoral head had collapsed into valgus and showed instability. Risks and benefits of bipolar hemiarthroplasty and biopsy of the lesion to get a confirmed pathologic diagnosis were discussed with her and she elected to proceed. DESCRIPTION OF PROCEDURE: Once consent was obtained, she was taken to the operating room. After adequate anesthesia, she was placed on operating table in right lateral decubitus position. Axillary roll was placed. All downside pressure points well padded. The leg was then Electronically Signed By: ERNESTINE AVENDANO MD 02/05/22 0809 PATIENT NAME: JOSE ANTONIO COY OPERATIVE REPORT DATE OF : 58 REPORT #: [id number] PHYSICIAN: ERNESTINE AVENDANO MD PCP: ROBBY FIKN DO REPORT IS CONFIDENTIAL AND NOT TO BE RELEASED WITHOUT AUTHORIZATION [facility] [address] [place], [place] [address] Signed prepped and draped in a standard sterile fashion to the iliac crest. The hip was approached through standard anterior lateral approach and carried through skin and subcutaneous tissue. IT band was divided longitudinally and the vastus lateralis was divided from the tip of the trochanter distally along the anterior margin. This was then elevated subperiosteally around the level of the lesser trochanter. The gluteus minimus and capsule were split from the tip of the trochanter to the acetabular rim. A partial capsulotomy was performed. The lesion in the femoral neck was easily visible and the femoral neck was noted to be fractured for the most part. Using a large rongeur, we did take a large tissue sample from the lesion and the surrounding areas. This was all placed in formalin and sent to Pathology. The femoral head was then removed using a 5.0 Schanz screw. Once we were able to get that clear, the acetabulum was noted to have some debris and was cleaned. The femoral neck cut was then made one fingerbreadth above the lesser trochanter and any remaining tumor that we could find in the proximal femur was removed. We then sized the acetabulum to 45 and moved onto the proximal femur. This was opened using the cookie cutter, followed by the awl. We then reamed to a 9 and broached to a 9, which was found to be well fitting. The 9 broach was left in position with standard offset neck and a 45 -3 bipolar construct. The hip was reduced, found to be stable. Leg lengths were good. The flexion of 110 degrees, internal and external rotation of 30. The hip was dislocated and the trials were removed. The decision was made to proceed with a cemented hip stem secondary to the tumor. The hospital did not have a cement restrictor and I could not make one of the femoral head due to the presence of extensive tumor in the femoral head. We elected to go ahead and cement without a cement restrictor distally. The canal was prepared by pulse lavage with a deep brush and packing with hydrogen peroxide soaked sponge. The cement was mixed and reached proper consistency, it was placed into the canal and pressurized for 2 minutes. The stem was then inserted in the canal until it was well seated at the level of the broach. The stem was held. All excess cement was removed. Once the cement was hardened sufficiently, the final bipolar construct was placed on the femoral neck and impacted. The hip was reduced again with excellent leg lengths and range of motion. We did place a wet Ray-Deedee in the acetabulum during the cementing process and this was removed. The wound was copiously irrigated throughout the procedure, a total of 3 L normal saline under pulse lavage was used. There was an IrriSept soak in the midportion. The capsule was then closed using #1 Vicryl. The vastus and IT band layers were closed independently using #2 StrataFix. Subcutaneous tissue was closed with an #0 Stratafix and skin with manuelito. The wound was super glued prior to stapling. The wound was dressed with an Acticoat 7 dressing, and she was awakened and taken to the recovery room in satisfactory condition. All sponge, needle, and instrument counts correct. Electronically Signed By: ERNESTINE AVENDANO MD 02/05/22 0809 PATIENT NAME: JOSE ANTONIO COY OPERATIVE REPORT DATE OF : 58 REPORT #: [id number] PHYSICIAN: ERNESTINE AVENDANO MD PCP: ROBBY FINK DO REPORT IS CONFIDENTIAL AND NOT TO BE RELEASED WITHOUT AUTHORIZATION [address] [place], [place] [address] Signed Ernestine Avendano MD BA/GREGGL /[id number] Copies: ~ Electronically Signed By: ERNESTINE AVENDANO MD 02/05/22 0809 PATIENT NAME: JOSE ANTONIO COY OPERATIVE REPORT DATE OF : 58 REPORT #: [id number] PHYSICIAN: ERNESTINE AVENDANO MD PCP: ROBBY FINK DO REPORT IS CONFIDENTIAL AND NOT TO BE RELEASED WITHOUT AUTHORIZATION
[2022-02-06] MEDS ORDERED: DICLOFENAC SODI75 MG PO (15:34)
[2022-02-06] MEDS ORDERED: XARELTO10 MG PO (15:34)
[2022-02-06] MEDS ORDERED: SENNA LAX8.6 MG PO (15:35)
[2022-02-06] MEDS ORDERED: HYDROMORPHONE HC4 MG PO (15:35)
[2022-02-06] MEDS ORDERED: GABAPENTIN300 MG PO (15:35)
[2022-02-07] MEDS ORDERED: ONDANSETRON ODT8 MG PO (09:37)
--- NOTE | 2022-02-09 15:50 | PATH ---
[facility] [address] [place], [place] [address] Signed SPECIMEN(S): A LYTIC LESION OF LEFT FEMORAL NECK SPECIMEN SOURCE: A. LYTIC LESION OF LEFT FEMORAL NECK CLINICAL HISTORY: Left hip pathologic fracture. FINAL PATHOLOGIC DIAGNOSIS: Femoral neck, left, lytic lesion, excision: - Metastatic carcinoma, compatible with metastatic lung adenocarcinoma. COMMENT: The results were discussed with Dr. Avendano on 02/07/22. As part of [facility] [employer] [employer] Program, this case was reviewed by another member of our pathology staff, who agrees with the diagnosis (RAINP). NAL:cml:C1NR MICROSCOPIC EXAMINATION: Histologic sections of all submitted blocks are examined by light microscopy. These findings, together with the gross examination, support the pathologic diagnosis. Sections demonstrate nests and cords of tumor cells infiltrating through the marrow space as well as in the soft tissue. Immunohistochemical stains (with appropriately staining controls) were performed. The tumor cells show the following: Pancytokeratin (AE1/AE3): Positive CK7: Positive TTF1: Patchy positive NapsinA: Positive GATA3: Negative ER: Negative Mammaglobin: Negative GCDFP15: Negative CK20: Negative. The combined morphologic and immunophenotypic profile is compatible with metastatic lung adenocarcinoma. GROSS DESCRIPTION: The specimen, labeled "TD, lytic lesion of left femoral neck," is received in formalin and consists of several unoriented pieces of bone and soft tissue PATIENT NAME: JOSE ANTONIO COY PATHOLOGY DATE OF : 58 REPORT #: [id number] PHYSICIAN: TIMOTHYBetfair PATHOLOGY PCP: ROBBY FINK DO REPORT IS CONFIDENTIAL AND NOT TO BE RELEASED WITHOUT AUTHORIZATION [facility] [address] [id number] Signed fragments that aggregate measure 8.0 x 3.5 x 1.5 cm. The bone tissue fragments are pink-calvert, soft and friable. Specimen is left for decalcification in Immunocal prior to processing. Citizenship Instructor sections are submitted in cassettes (A1-A4). JS (under the direct supervision of a pathologist) The Gross Description was prepared using a voice recognition system. The report was reviewed for accuracy; however, sound-alike word errors, addition and/or deletions may occur. If there is any question about this report, please contact Client Services. ADDITIONAL NOTES: Immunohistochemical and/or in situ hybridization studies were performed on this case with the appropriate positive controls that react as expected. This test was developed and its performance characteristics determined by [facility]. It has not been cleared or approved by the U.S. Food and Drug Administration. The FDA has determined that such clearance or approval is not necessary. This test is used for clinical purposes. It should not be regarded as investigational or for research. [facility] is certified under the Clinical Laboratory Improvement Amendments of 1988 (CLIA) as qualified to perform high complexity clinical laboratory testing. This assay has not been validated for specimens that have been decalcified. The technical component was performed by [facility], [address] [place] [id number] (CLIA# [id number]). [facility], [address] [address] (CLIA# [id number]). PERFORMING LABORATORY: The technical component was performed by [facility], [address] [place] [address] (CLIA# [id number]). Professional interpretation was performed by [facility], [address] [place], [place] [address] (CLIA# [id number]). Diagnostician: Massiel Nava MD Pathologist Electronically Signed 02/09/2022 PATIENT NAME: JOSE ANTONIO COYN PATHOLOGY DATE OF : 58 REPORT #: [id number] PHYSICIAN: YAN PATHOLOGY PCP: ROBBY FINK DO REPORT IS CONFIDENTIAL AND NOT TO BE RELEASED WITHOUT AUTHORIZATION [facility] [address] [facility] [place], [place] [address] Signed Copies: ~ PATIENT NAME: JOSE ANTONIO COYN PATHOLOGY DATE OF : 58 REPORT #: [id number] PHYSICIAN: INCYTE PATHOLOGY PCP: ROBBY FINK DO REPORT IS CONFIDENTIAL AND NOT TO BE RELEASED WITHOUT AUTHORIZATION
== END 2022-02-07 10:40 | disposition home or self-care (01) | DRG 521 ==
LOC: ED 12:46 → MS 15:22
PROVIDERS: ADMIT Specialist; ATTEND Specialist
PROC: 0QB70ZX Excision of Left Upper Femur, Open Approach, Diagnostic (ICD-10-PCS; 2022-02-04)
PROC: 0SRS0J9 Replacement of Left Hip Joint, Femoral Surface with Synthetic Substitute, Cemented, Open Approach (ICD-10-PCS; principal; 2022-02-04 06:33)
DX: M84.552A Pathological fracture in neoplastic disease, left femur, initial encounter for fracture (principal); J18.9 Pneumonia, unspecified organism; J96.01 Acute respiratory failure with hypoxia; C34.91 Malignant neoplasm of unspecified part of right bronchus or lung; E87.1 Hypo-osmolality and hyponatremia; Z20.822 Contact with and (suspected) exposure to COVID-19; G89.3 Neoplasm related pain (acute) (chronic); N63.0 Unspecified lump in unspecified breast; R91.8 Other nonspecific abnormal finding of lung field; I48.91 Unspecified atrial fibrillation; M19.90 Unspecified osteoarthritis, unspecified site; N18.9 Chronic kidney disease, unspecified; E27.9 Disorder of adrenal gland, unspecified; E78.5 Hyperlipidemia, unspecified; K21.9 Gastro-esophageal reflux disease without esophagitis; Z79.82 Long term (current) use of aspirin; Z79.899 Other long term (current) drug therapy
CPT/HCPCS: 01210; 36415; 72170; 73502; 73700; 80048; 80053; 85025; 86850; 86900; 86901; 87502; 93005; 93010; 94762; 97110; 97116; 97161; A9270; C1713; C1776; C9803; J0690; J1170; J1885; J2001; J2250; J2370; J2704; J2795; J3010; J3480; U0003

== ENCOUNTER 2022-02-16 10:02 | Emergency (ER) | payer BC, MEDICARE ==
[~2022-02-16] VITALS: Ht 165.1 cm; Wt 90.3 kg
[~2022-02-16 10:02] MED LIST changes: +DICLOFENAC SODI75 MG PO; +GABAPENTIN300 MG PO; +ONDANSETRON ODT8 MG PO; +SENNA LAX8.6 MG PO; +XARELTO10 MG PO
--- OUTSIDE RECORDS SUMMARY | 2022-02-16 10:04 | XMS ---
PreManage Notification: JOSE ANTONIO COY Security Commercial Lender Events No recent Security Events currently on file [facility] CARE PROVIDERS RUCHI FINK [facility] Current PHONE: Unknown Karan has no Care Guidelines for this patient. Dalia VISIT COUNT (12 MO.) 3 [facility] TOTAL 3 NOTE: Visits indicate total known visits. ED/UCC VISIT TRACKING (12 MO.) 02/16/2022 10:02 [facility] TYPE: Emergency COMPLAINT: - STROKE SYMPTOMS 02/03/2022 12:46 [facility] TYPE: Emergency COMPLAINT: - L HIP PAIN 01/24/2022 21:55 [facility] TYPE: Emergency COMPLAINT: - RIGHT SIDE FLANK PAIN, SOB INPATIENT VISIT TRACKING (12 MO.) 02/03/2022 15:22 [facility] TYPE: Medical Surgical COMPLAINT: - LT HIP FX DIAGNOSES: - Disorder of adrenal gland, unspecified - Unspecified atrial fibrillation - Unspecified lump in unspecified breast - Other manager intermediate (current) drug therapy - Acute respiratory failure with hypoxia - Unspecified osteoarthritis, unspecified site - Pathological fracture, hip, unspecified, initial encounter for fracture - Gastro-esophageal reflux disease without esophagitis - Other nonspecific abnormal finding of lung field - Unspecified atrial fibrillation - Hypo-osmolality and hyponatremia - Hyperlipidemia, unspecified - Pneumonia, unspecified organism - Malignant neoplasm of unspecified part of right bronchus or lung - Hyperlipidemia, unspecified - Gastro-esophageal reflux disease without esophagitis - Other nonspecific abnormal finding of lung field - termination clerk (current) use of aspirin - Pneumonia, unspecified organism - Unspecified osteoarthritis, unspecified site - Pathological fracture in neoplastic disease, left femur, initial encounter for fracture - termination clerk (current) use of aspirin - Disorder of adrenal gland, unspecified - Unspecified lump in unspecified breast - Hypo-osmolality and hyponatremia - Neoplasm related pain (acute) (chronic) - Other manager intermediate (current) drug therapy - Pathological fracture in neoplastic disease, left femur, initial encounter for fracture - Acute respiratory failure with hypoxia - Neoplasm related pain (acute) (chronic) - Contact with and (suspected) exposure to COVID-19 - Malignant neoplasm of unspecified part of right bronchus or lung - Chronic kidney disease, unspecified - Chronic kidney disease, unspecified - Contact with and (suspected) exposure to COVID-19 01/25/2022 18:10 [facility] TYPE: Medical Surgical COMPLAINT: - POST OBSTRUCTIVE PNEUMONIA DIAGNOSES: - Acquired absence of both cervix and uterus - Pain in left hip - Pneumonia, unspecified organism - Malignant neoplasm of upper lobe, right bronchus or lung - Obesity, unspecified - Contact with and (suspected) exposure to COVID-19 - Other penitentiary (current) drug therapy - Malignant neoplasm of unspecified site of left female breast - Other penitentiary (current) drug therapy - Contact with and [...] Other nonspecific abnormal finding of lung field [email or web address]
--- NOTE | 2022-02-17 13:44 | EKG ---
[facility] [address] [facility] [place] [address] Signed Normal sinus rhythm Left axis deviation Low voltage QRS Incomplete right bundle branch block Abnormal ECG When compared with ECG of 03-FEB-2022 13:57, premature ventricular complexes are no longer present Incomplete right bundle branch block is now present Confirmed by JOLIE MUÑOZ MD ([id number]) on 02/17/2022 1:43:56 PM Electronically Signed By: JOLIE MUÑOZ MD 02/17/22 1344 PATIENT NAME: JOSE ANTONIO COY Electrocardiogram DATE OF : 58 PHYSICIAN: JOLIE MUÑOZ MD REPORT #: [id number] REPORT IS CONFIDENTIAL AND NOT TO BE RELEASED WITHOUT AUTHORIZATION
== END 2022-02-16 17:25 | disposition short-term general hospital (02) ==
LOC: ED 10:02
DX: I82.4Z2 Acute embolism and thrombosis of unspecified deep veins of left distal lower extremity (principal); I82.432 Acute embolism and thrombosis of left popliteal vein; I82.412 Acute embolism and thrombosis of left femoral vein; C79.31 Secondary malignant neoplasm of brain; K21.9 Gastro-esophageal reflux disease without esophagitis; Z85.118 Personal history of other malignant neoplasm of bronchus and lung; Z79.899 Other long term (current) drug therapy; Z79.01 Long term (current) use of anticoagulants; Z20.822 Contact with and (suspected) exposure to COVID-19
CPT/HCPCS: 36415; 70450; 71045; 80053; 83735; 84484; 85025; 85610; 85730; 87502; 93005; 93010; 93971; 94640; 96374; 96375; 99285-25; C9803; J1100; J1953; J2270; J2405; J7168; U0003

== ENCOUNTER 2022-03-12 18:02 | Inpatient (IN) | payer BC, MEDICARE ==
[~2022-03-12] VITALS: Ht 165.1 cm; Wt 80.7 kg
--- OUTSIDE RECORDS SUMMARY | 2022-03-12 18:04 | XMS ---
PreManage Notification: JOSE ANTONIO COY Security Workgroup Leader Events No recent Security Events currently on file CRITERIA MET - [facility] - [facility] RU[facility] Current PHONE: Unknown Karan has no Care Guidelines for this patient. EDelia VISIT COUNT (12 MO.) 1 Jose Garces [address] [place] [address] TOTAL 5 NOTE: Visits indicate total known visits. ED/UCC VISIT TRACKING (12 MO.) 03/12/2022 18:03 [facility] TYPE: Emergency COMPLAINT: - FATIGUE 02/26/2022 17:00 Jose THURMAN TYPE: Emergency DIAGNOSES: - Post Radiation Problem - Headache - Sepsis, unspecified organism - Peripheral vascular disease, unspecified - Foot Injury - Secondary malignant neoplasm of brain - Acute kidney failure, unspecified 02/16/2022 10:02 [facility] TYPE: Emergency COMPLAINT: - STROKE SYMPTOMS DIAGNOSES: - Gastro-esophageal reflux disease without esophagitis - Personal history of other malignant neoplasm of bronchus and lung - Acute embolism and thrombosis of left femoral vein - Secondary malignant neoplasm of brain - Contact with and (suspected) exposure to COVID-19 - Acute embolism and thrombosis of unspecified deep veins of left distal lower extremity - Dysphasia - Other termite exterminator (current) drug therapy - Acute embolism and thrombosis of left popliteal vein - moth exterminator (current) use of anticoagulants 02/03/2022 12:46 [facility] TYPE: Emergency COMPLAINT: - L HIP PAIN 01/24/2022 21:55 [facility] TYPE: Emergency COMPLAINT: - RIGHT SIDE FLANK PAIN, SOB INPATIENT VISIT TRACKING (12 MO.) 02/16/2022 18:56 Jose [facility]URMAN TYPE: Medical Surgical DIAGNOSES: - Diffuse Metastatic Disease - Secondary malignant neoplasm of unspecified site - Malignant neoplasm of unspecified part of unspecified bronchus or lung 02/03/2022 15:22 [facility] TYPE: Medical Surgical COMPLAINT: - LT HIP FX DIAGNOSES: - Disorder of adrenal gland, unspecified - Unspecified atrial fibrillation - Unspecified lump in unspecified breast - Other residential (current) drug therapy - Acute respiratory failure [...] nonspecific abnormal finding of lung field - moth exterminator (current) use of aspirin - Pneumonia, unspecified organism - Unspecified osteoarthritis, unspecified site - Pathological fracture in neoplastic disease, left femur, initial encounter for fracture - group home (current) use of aspirin - Disorder of adrenal gland, unspecified - Unspecified lump in unspecified breast - Hypo-osmolality and hyponatremia - Neoplasm related pain (acute) (chronic) - Other termite exterminator (current) drug therapy - Pathological fracture in [...] and (suspected) exposure to COVID-19 01/25/2022 18:[address] [facility] [place] TYPE: Medical Surgical COMPLAINT: - POST OBSTRUCTIVE PNEUMONIA DIAGNOSES: - Acquired absence of both cervix and uterus - Pain in left hip - Pneumonia, unspecified organism - Malignant neoplasm of upper lobe, right bronchus or lung - Obesity, unspecified - Contact with and (suspected) exposure to COVID-19 - Other termite exterminator (current) drug therapy - Malignant neoplasm of unspecified site of left female breast - Other residential (current) drug therapy - Contact with and [...] Other nonspecific abnormal finding of lung field [email or web address]
[2022-03-13] MEDS ORDERED: ENOXAPARIN80 MG/0.8 SUB-Q (09:19)
[2022-03-13] MEDS ORDERED: TRANSDERM-SCOP1 EACH TD (09:20)
[2022-03-13] MEDS ORDERED: BENZONATATE100 MG PO (09:21)
[2022-03-13] MEDS ORDERED: ALBUTEROL2.5 MG/3 M INH (09:21)
[2022-03-13] MEDS ORDERED: DEXAMETHASONE4 MG PO (09:22)
[2022-03-13] MEDS ORDERED: IPRAT-ALBUT 0.5-3 ML INH (09:23)
[2022-03-13] MEDS ORDERED: LEVETIRACETAM500 MG PO (09:23)
[2022-03-13] MEDS ORDERED: ONDANSETRON HCL8 MG PO (09:24)
--- NOTE | 2022-03-15 18:09 | EKG ---
[facility] [address] [facility] [place] [address] Signed Sinus tachycardia Right superior axis deviation Right ventricular hypertrophy with repolarization abnormality Inferior infarct , age undetermined Abnormal ECG When compared with ECG of 16-FEB-2022 10:56, Incomplete right bundle branch block is no longer present Inferior infarct is now present Confirmed by JOLIE MUÑOZ MD ([id number]) on 03/15/2022 6:09:06 PM Electronically Signed By: JOLIE MUÑOZ MD 03/15/22 1809 PATIENT NAME: JOSE ANTONIO COY Electrocardiogram DATE OF : 58 PHYSICIAN: JOLIE MUÑOZ MD REPORT #: [id number] REPORT IS CONFIDENTIAL AND NOT TO BE RELEASED WITHOUT AUTHORIZATION
[2022-03-16] MEDS ORDERED: CEFPODOXIME PR200 MG PO (11:17)
[2022-03-16] MEDS ORDERED: LEVOFLOXACIN750 MG PO (11:17)
[2022-03-16] MEDS ORDERED: PROCHLORPERAZINE5 MG PO (11:19)
== END 2022-03-16 14:00 | disposition home or self-care (01) | DRG 871 ==
LOC: ED 18:02 → CCU 22:34
PROVIDERS: ADMIT Internal Medicine; ATTEND Internal Medicine
PROC: 8E0ZXY6 Isolation (ICD-10-PCS; principal; 2022-03-12)
PROC: 3E0333Z Introduction of Anti-inflammatory into Peripheral Vein, Percutaneous Approach (ICD-10-PCS; 2022-03-12)
PROC: XW033E5 Introduction of Remdesivir Anti-infective into Peripheral Vein, Percutaneous Approach, New Technology Group 5 (ICD-10-PCS; 2022-03-12)
PROC: 3E03329 Introduction of Other Anti-infective into Peripheral Vein, Percutaneous Approach (ICD-10-PCS; 2022-03-12)
PROC: 5A0945A Assistance with Respiratory Ventilation, 24-96 Consecutive Hours, High Flow/Velocity Cannula (ICD-10-PCS; 2022-03-12)
PROC: 30233R1 Transfusion of Nonautologous Platelets into Peripheral Vein, Percutaneous Approach (ICD-10-PCS; 2022-03-14)
DX: A41.50 Gram-negative sepsis, unspecified (principal); J96.01 Acute respiratory failure with hypoxia; J15.6 Pneumonia due to other Gram-negative bacteria; G93.41 Metabolic encephalopathy; D61.810 Antineoplastic chemotherapy induced pancytopenia; U07.1 COVID-19; J12.82 Pneumonia due to coronavirus disease 2019; C34.90 Malignant neoplasm of unspecified part of unspecified bronchus or lung; C79.31 Secondary malignant neoplasm of brain; C77.0 Secondary and unspecified malignant neoplasm of lymph nodes of head, face and neck; C77.1 Secondary and unspecified malignant neoplasm of intrathoracic lymph nodes; C77.5 Secondary and unspecified malignant neoplasm of intrapelvic lymph nodes; D68.59 Other primary thrombophilia; C79.51 Secondary malignant neoplasm of bone; C79.72 Secondary malignant neoplasm of left adrenal gland; C79.71 Secondary malignant neoplasm of right adrenal gland; Z66 Do not resuscitate; Z86.718 Personal history of other venous thrombosis and embolism; T45.1X5A Adverse effect of antineoplastic and immunosuppressive drugs, initial encounter; Z85.3 Personal history of malignant neoplasm of breast; Z96.642 Presence of left artificial hip joint; Z79.899 Other long term (current) drug therapy
CPT/HCPCS: 36415; 51702; 70450; 71045; 80048; 80053; 80202; 81001; 82803; 83605; 83735; 85025; 85610; 85730; 86850; 86900; 86901; 87502; 93005; 93010; 94640; 94761; 99285-25; A9270; C9113; J0248; J0692; J0780; J1100; J1630; J1953; J1956; J2060; J2270; J2405; J3370; J3475; J7030; J7050; J7060; J7121; P9035; P9037; P9055; U0003

== ENCOUNTER 2022-05-13 03:03 | Emergency (ER) | payer MEDICARE, BC ==
[~2022-05-13] VITALS: Ht 165.1 cm; Wt 80.3 kg
[~2022-05-13 03:03] MED LIST changes: +ALBUTEROL2.5 MG/3 M INH; +CEFPODOXIME PR200 MG PO; +DEXAMETHASONE4 MG PO; +ENOXAPARIN80 MG/0.8 SUB-Q; +IPRAT-ALBUT 0.5-3 ML INH; +LEVETIRACETAM500 MG PO; +LEVOFLOXACIN750 MG PO; +ONDANSETRON HCL8 MG PO; +PROCHLORPERAZINE5 MG PO; +TRANSDERM-SCOP1 EACH TD
--- OUTSIDE RECORDS SUMMARY | 2022-05-13 03:04 | XMS ---
PreManage Notification: JOSE ANTONIO COY Security Bacon Stringer Events No recent Security Events currently on file CRITERIA MET - 6 ED Visits in 6 Months - [facility] CARE PROVIDERS RUCHI FINK [facility] Current PHONE: Unknown Karan has no Care Guidelines for this patient. Dalia VISIT COUNT (12 MO.) 1 Jose Liang TOTAL 6 NOTE: Visits indicate total known visits. ED/C VISIT TRACKING (12 MO.) 05/13/2022 03:03 [facility] TYPE: Emergency COMPLAINT: - FALL 03/12/2022 18:03 [facility] TYPE: Emergency COMPLAINT: - FATIGUE 02/26/2022 17:00 Jose THURMAN TYPE: Emergency DIAGNOSES: - Acute kidney failure, unspecified - Foot Injury - Sepsis, unspecified organism - Post Radiation Problem - Secondary malignant neoplasm of brain - Peripheral vascular disease, unspecified - Headache 02/16/2022 10:02 [facility] TYPE: Emergency COMPLAINT: - STROKE SYMPTOMS DIAGNOSES: - Dysphasia - Contact with and (suspected) exposure to COVID-19 - Acute embolism and thrombosis of left femoral vein - long term acute care registered nurse (current) use of anticoagulants - Gastro-esophageal reflux disease without esophagitis - Other terminal block assembler (current) drug therapy - Acute embolism and thrombosis of unspecified deep veins of left distal lower extremity - Secondary malignant neoplasm of brain - Personal history of other malignant neoplasm of bronchus and lung - Acute embolism and thrombosis of left popliteal vein 02/03/2022 12:46 [facility] TYPE: Emergency COMPLAINT: - L HIP PAIN 01/24/2022 21:55 [facility] TYPE: Emergency COMPLAINT: - RIGHT SIDE FLANK PAIN, SOB INPATIENT VISIT TRACKING (12 MO.) 03/12/2022 22:[address] [facility] [place] TYPE: Critical Care COMPLAINT: - SEPSIS DIAGNOSES: - Metabolic encephalopathy - Other primary thrombophilia - Secondary and unspecified malignant neoplasm of lymph nodes of head, face and neck - Secondary and unspecified malignant neoplasm of intrathoracic lymph nodes - Secondary malignant neoplasm of brain - Pneumonia due to coronavirus disease 2018 - Malignant neoplasm of unspecified part of unspecified bronchus or lung - Acute respiratory failure with hypoxia - Do not resuscitate - Do not resuscitate - Personal history of other venous thrombosis and embolism - Secondary malignant neoplasm of right adrenal gland - Pneumonia due to coronavirus disease 2018 - Secondary malignant neoplasm of brain - Other primary thrombophilia - Personal history of other venous thrombosis and embolism - Malignant neoplasm of unspecified part of unspecified bronchus or lung - Adverse effect of antineoplastic and immunosuppressive drugs, initial encounter - Personal history of malignant neoplasm of breast - Pneumonia due to other Gram-negative bacteria - 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 - Secondary malignant neoplasm of bone - Antineoplastic chemotherapy induced pancytopenia - Gram-negative sepsis, unspecified - Secondary and unspecified malignant neoplasm of intrathoracic lymph nodes - Secondary malignant neoplasm of right adrenal gland - Secondary malignant neoplasm of bone - Other [facility] (current) drug therapy - 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 - Pneumonia due to other Gram-negative bacteria - Antineoplastic chemotherapy induced pancytopenia - Secondary malignant neoplasm of left adrenal gland - Presence of left artificial hip joint - Metabolic encephalopathy - Secondary malignant neoplasm of left adrenal gland - Acute respiratory failure with hypoxia - Adverse effect of antineoplastic and immunosuppressive drugs, initial encounter - Personal history of malignant neoplasm of breast - COVID-19 - COVID-19 - Presence of left artificial hip joint - Other terminal block assembler (current) drug therapy - Secondary and unspecified malignant neoplasm of lymph nodes of head, face and neck 02/16/2022 18:56 Jose THURMAN TYPE: Medical Surgical DIAGNOSES: - Malignant neoplasm of unspecified part of unspecified bronchus or lung - Diffuse Metastatic Disease - Secondary malignant neoplasm of unspecified site 02/03/2022 15:22 [facility] TYPE: Medical Surgical COMPLAINT: - LT HIP FX DIAGNOSES: - Hypo-osmolality and hyponatremia - Unspecified osteoarthritis, unspecified site - Pneumonia, unspecified organism - Malignant neoplasm of unspecified part of right bronchus or lung - Disorder of adrenal gland, unspecified - Other terminal block assembler (current) drug therapy - Neoplasm related pain (acute) (chronic) - Hypo-osmolality and hyponatremia - long term acute care registered nurse (current) use of aspirin - Pathological fracture in neoplastic disease, left femur, initial encounter for fracture - Unspecified atrial fibrillation - Pneumonia, unspecified organism - Other nonspecific abnormal finding of lung field - Gastro-esophageal reflux disease without esophagitis - Pathological fracture in neoplastic disease, left femur, initial encounter for fracture - Contact with and (suspected) exposure to COVID-19 - Neoplasm related pain (acute) (chronic) - Pathological fracture, hip, unspecified, initial encounter for fracture - Malignant neoplasm of unspecified part of right bronchus or lung - Chronic kidney disease, unspecified - Unspecified lump in unspecified breast - Acute respiratory failure with hypoxia - Hyperlipidemia, unspecified - Contact with and (suspected) exposure to COVID-19 - [facility] (current) use of aspirin - Unspecified lump in unspecified breast - Acute respiratory failure with hypoxia - Disorder of adrenal gland, unspecified - Other nonspecific abnormal finding of lung field - Unspecified osteoarthritis, unspecified site - Unspecified atrial fibrillation - Other [facility] (current) drug therapy - Gastro-esophageal reflux disease without esophagitis - Hyperlipidemia, unspecified - Chronic kidney disease, unspecified 01/25/2022 18:[address] 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 - Neoplasm related pain (acute) (chronic) - Pain in left hip - Hyperlipidemia, unspecified - Contact with and (suspected) exposure to COVID-19 - Personal history of nicotine dependence - Enlarged lymph nodes, unspecified - Malignant neoplasm of middle lobe, bronchus or lung - Gastro-esophageal reflux disease without esophagitis - Acute respiratory failure with hypoxia - Malignant neoplasm of upper lobe, right bronchus or lung - Acquired absence of both cervix and uterus - Unspecified osteoarthritis, unspecified site - Personal history of nicotine dependence - Gastro-esophageal reflux disease without esophagitis - Pain in left hip - Other terminal block assembler (current) drug therapy - Neoplasm related pain (acute) (chronic) - Malignant neoplasm of upper-outer quadrant of left female breast - 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
== END 2022-05-13 07:01 | disposition home or self-care (01) ==
LOC: ED 03:03
DX: S00.03XA Contusion of scalp, initial encounter (principal); K21.9 Gastro-esophageal reflux disease without esophagitis; Z79.899 Other long term (current) drug therapy; W18.40XA Slipping, tripping and stumbling without falling, unspecified, initial encounter
CPT/HCPCS: 70450; 72125; 96374; 96375; 99284-25; J1170; J2405

== ENCOUNTER 2022-05-29 11:08 | Inpatient (IN) | payer BC, MEDICARE ==
[~2022-05-29] VITALS: Ht 165.1 cm; Wt 85.6 kg
--- NOTE | ~2022-05-29 | EKG ---
[facility] [address] [facility] [place], [place] [address] Draft EK completed, results pending confirmation PATIENT NAME: ANNELIESE,JOSE ANTONIO BOLANOS Electrocardiogram DATE OF : 58 PHYSICIAN: PRELIMINARY REPORT #: [id number] REPORT IS CONFIDENTIAL AND NOT TO BE RELEASED WITHOUT AUTHORIZATION
[~2022-05-29 11:08] MED LIST changes: -ONDANSETRON HCL8 MG PO
--- OUTSIDE RECORDS SUMMARY | 2022-05-29 11:10 | XMS ---
PreManage Notification: JOSE ANTONIO COY Security Cartridge Loader Events No recent Security Events currently on file CRITERIA MET - [facility] - 2 Visits in 30 Days - 6 ED Visits in 6 Months - [facility] RUCHI FINK [facility] Current PHONE: Unknown Karan has no Care Guidelines for this patient. E.Gurwinder VISIT COUNT (12 MO.) 1 Jose Garces [address] [place] [address] TOTAL 7 NOTE: Visits indicate total known visits. ED/UCC VISIT TRACKING (12 MO.) 05/29/2022 11:08 [facility] [place] TYPE: Emergency COMPLAINT: - POSSIBLE INFECTION 05/13/2022 03:03 [facility] Dem[facility] [place] TYPE: Emergency COMPLAINT: - FALL DIAGNOSES: - Gastro-esophageal reflux disease without esophagitis - Other senior living (current) drug therapy - Slipping, tripping and stumbling without falling, unspecified, initial encounter - Contusion of scalp, initial encounter 03/12/2022 18:03 [facility] [place] TYPE: Emergency COMPLAINT: - FATIGUE 02/26/2022 17:00 Jose THURMAN TYPE: Emergency DIAGNOSES: - Acute kidney failure, unspecified - Foot Injury - Sepsis, unspecified organism - Post Radiation Problem - Secondary malignant neoplasm of brain - Peripheral vascular disease, unspecified - Headache 02/16/2022 10:02 [facility] [place] TYPE: Emergency COMPLAINT: - STROKE SYMPTOMS DIAGNOSES: - Acute embolism and thrombosis of left popliteal vein - Dysphasia - Contact with and (suspected) exposure to COVID-19 - Acute embolism and thrombosis of left femoral vein - snf (current) use of anticoagulants - Gastro-esophageal reflux disease without esophagitis - Other evaporator operator (current) drug therapy - Acute embolism and thrombosis of unspecified deep veins of left distal lower extremity - Secondary malignant neoplasm of brain - Personal history of other malignant neoplasm of bronchus and lung 02/03/2022 12:46 [facility] [place] TYPE: Emergency COMPLAINT: - L HIP PAIN 01/24/2022 21:55 [facility] Dem[facility] [place] TYPE: Emergency COMPLAINT: - RIGHT SIDE FLANK PAIN, SOB INPATIENT VISIT TRACKING (12 MO.) 03/12/2022 22:34 [facility] [place] TYPE: Critical Care COMPLAINT: - SEPSIS DIAGNOSES: - COVID-19 - COVID-19 - Presence of left artificial hip joint - Secondary and unspecified malignant neoplasm of lymph nodes of head, face and neck - Other senior living (current) drug therapy - Other primary thrombophilia - Secondary and unspecified malignant neoplasm of lymph nodes of head, face and neck - Metabolic encephalopathy - Secondary malignant neoplasm of brain - Secondary and unspecified malignant neoplasm of intrathoracic lymph nodes - Malignant neoplasm of unspecified part of unspecified bronchus or lung - Acute respiratory failure with hypoxia - Pneumonia due to coronavirus disease 2019 - Do not resuscitate - Do not resuscitate - Secondary malignant neoplasm of right adrenal gland - Pneumonia due to coronavirus disease 2019 - Personal history of other venous thrombosis and embolism - Secondary malignant neoplasm of brain - Other primary thrombophilia - Personal history of other venous thrombosis and embolism - Adverse effect of antineoplastic and immunosuppressive drugs, initial encounter - Personal history of malignant neoplasm of breast - Malignant neoplasm of unspecified part of unspecified bronchus or lung - 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 - Secondary malignant neoplasm of bone - Pneumonia due to other Gram-negative bacteria - Gram-negative sepsis, unspecified - Antineoplastic chemotherapy induced pancytopenia - Secondary malignant neoplasm of right adrenal gland - Secondary malignant neoplasm of bone - Secondary and unspecified malignant neoplasm of intrathoracic lymph nodes - 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 - Other evaporator operator (current) drug therapy - Antineoplastic chemotherapy induced pancytopenia - Secondary malignant neoplasm of left adrenal gland - Pneumonia due to other Gram-negative bacteria - Presence of left artificial hip joint - Metabolic encephalopathy - Secondary malignant neoplasm of left adrenal gland - Adverse effect of antineoplastic and immunosuppressive drugs, initial encounter - Personal history of malignant neoplasm of breast - Acute respiratory failure with hypoxia 02/16/2022 18:56 Jose THURMAN TYPE: Medical Surgical DIAGNOSES: - Malignant neoplasm of unspecified part of unspecified bronchus or lung - Diffuse Metastatic Disease - Secondary malignant neoplasm of unspecified site 02/03/2022 15:22 GRACIELA Oliver TYPE: Medical Surgical COMPLAINT: - LT HIP FX DIAGNOSES: - Other senior living (current) drug therapy - Gastro-esophageal reflux disease without esophagitis - Chronic kidney disease, unspecified - Hyperlipidemia, unspecified - Hypo-osmolality and hyponatremia - Unspecified osteoarthritis, unspecified site - Malignant neoplasm of unspecified part of right bronchus or lung - Pneumonia, unspecified organism - Disorder of adrenal gland, unspecified - Other senior living (current) drug therapy - Neoplasm related pain (acute) (chronic) - Hypo-osmolality and hyponatremia - Pathological fracture in neoplastic disease, left femur, initial encounter for fracture - Unspecified atrial fibrillation - snf (current) use of aspirin - Pneumonia, unspecified organism - Other nonspecific abnormal finding of lung field - Pathological fracture in neoplastic disease, left femur, initial encounter for fracture - Contact with and (suspected) exposure to COVID-19 - Gastro-esophageal reflux disease without esophagitis - Neoplasm related pain (acute) (chronic) - Pathological fracture, hip, unspecified, initial encounter for fracture - Chronic kidney disease, unspecified - Malignant neoplasm of unspecified part of right bronchus or lung - Unspecified lump in unspecified breast - Acute respiratory failure with hypoxia - Contact with and (suspected) exposure to COVID-19 - Hyperlipidemia, unspecified - release and technical records clerk (current) use of aspirin - Unspecified lump in unspecified breast - Acute respiratory failure with hypoxia - Disorder of adrenal gland, unspecified - Unspecified osteoarthritis, unspecified site - Unspecified atrial fibrillation - Other nonspecific abnormal finding of lung field 01/25/2022 18:[address] [facility] [place] TYPE: Medical Surgical COMPLAINT: - POST OBSTRUCTIVE PNEUMONIA DIAGNOSES: - Shortness of breath - Obesity, unspecified - Osteolysis, left thigh - Other nonspecific abnormal finding of lung field - Enlarged lymph nodes, unspecified - Pneumonia, unspecified organism - Hyperlipidemia, unspecified - Acquired absence of both cervix and uterus - Contact with and (suspected) exposure to COVID-19 - Acute respiratory failure with hypoxia - Unspecified osteoarthritis, unspecified site - Malignant neoplasm of upper-outer quadrant of left female breast - Pneumonia, unspecified organism - Malignant neoplasm of unspecified site of left female breast - Neoplasm related pain (acute) (chronic) - Pain in left hip - 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 - Hyperlipidemia, unspecified - Contact with and (suspected) exposure to COVID-19 - Enlarged lymph nodes, unspecified - Malignant neoplasm of middle lobe, bronchus or lung - Personal history of nicotine dependence - Acute respiratory failure with hypoxia - Malignant neoplasm of upper lobe, right bronchus or lung - Gastro-esophageal reflux disease without esophagitis - Unspecified osteoarthritis, unspecified site - Acquired absence of both cervix and uterus - Gastro-esophageal reflux disease without esophagitis - Pain in left hip - Personal history of nicotine dependence - Neoplasm related pain (acute) (chronic) - Other senior living (current) drug therapy - 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
[2022-05-29] MEDS ORDERED: DEXAMETHASONE2 MG PO (18:22)
[2022-05-30] MEDS ORDERED: CYCLOBENZAPRINE10 MG PO (13:55)
[2022-06-02] MEDS ORDERED: STOPAIN118 ML TOP (15:46)
[2022-06-13] MEDS ORDERED: HYDROMORPHONE HC2 MG PO (12:14)
[2022-06-13] MEDS ORDERED: FENTANYL1 EACH TD (12:14)
== END 2022-06-13 17:20 | disposition home or self-care (01) | DRG 64 ==
LOC: ED 11:08 → MS 11:09
PROVIDERS: ADMIT Family Medicine; ATTEND Family Medicine
PROC: 0DH67UZ Insertion of Feeding Device into Stomach, Via Natural or Artificial Opening (ICD-10-PCS; principal; 2022-06-07)
DX: I61.1 Nontraumatic intracerebral hemorrhage in hemisphere, cortical (principal); G93.41 Metabolic encephalopathy; J18.9 Pneumonia, unspecified organism; E46 Unspecified protein-calorie malnutrition; C34.90 Malignant neoplasm of unspecified part of unspecified bronchus or lung; C77.9 Secondary and unspecified malignant neoplasm of lymph node, unspecified; C79.31 Secondary malignant neoplasm of brain; C79.72 Secondary malignant neoplasm of left adrenal gland; C79.71 Secondary malignant neoplasm of right adrenal gland; C79.51 Secondary malignant neoplasm of bone; Z20.822 Contact with and (suspected) exposure to COVID-19; K21.9 Gastro-esophageal reflux disease without esophagitis; G89.3 Neoplasm related pain (acute) (chronic); Z85.3 Personal history of malignant neoplasm of breast; Z90.710 Acquired absence of both cervix and uterus; Z96.642 Presence of left artificial hip joint; Z79.899 Other long term (current) drug therapy; Z86.16 Personal history of COVID-19; E83.42 Hypomagnesemia; D64.9 Anemia, unspecified
CPT/HCPCS: 31720; 36415; 70450; 70496; 70498; 70551; 71045; 74018; 76000; 80048; 80053; 80061; 81001; 82140; 82803; 83605; 83735; 85025; 85060; 85610; 85730; 86850; 86900; 86901; 87040; 87088; 87502; 93005; 93010; 93306; 94760; 97110; 97163; 97167; 97530; 97535; 99285-25; A9270; C9113; C9803; J0456; J0696; J1100; J1170; J1200; J1720; J1940; J1953; J2060; J3475; J3480; J7030; J7060; J7070; J7121; J8540; Q9967; U0003

== ENCOUNTER 2022-10-15 13:51 | Inpatient (IN) | payer BC, MEDICARE ==
[~2022-10-15] VITALS: Ht 165.1 cm; Wt 75.0 kg
[~2022-10-15 13:51] MED LIST changes: +DEXAMETHASONE2 MG PO; +FENTANYL1 EACH TD; +HYDROMORPHONE HC2 MG PO; +STOPAIN118 ML TOP
--- OUTSIDE RECORDS SUMMARY | 2022-10-15 13:54 | XMS ---
PreManage Notification: JOSE ANTONIO COY Security Varnish Melter Events No recent Security Events currently on file CRITERIA MET - [facility] CARE PROVIDERS RUCHI FINK [facility] Current PHONE: Unknown Karan has no Care Guidelines for this patient. Dalia VISIT COUNT (12 MO.) 1 Jose Liang TOTAL 8 NOTE: Visits indicate total known visits. ED/UCC VISIT TRACKING (12 MO.) 10/15/2022 13:53 [facility] [place] TYPE: Emergency COMPLAINT: - ALTERED MENTAL STATUS, L ILANA SORChristopher, SOB 05/29/2022 11:08 [facility] [place] TYPE: Emergency COMPLAINT: - POSSIBLE INFECTION 05/13/2022 03:03 [facility] [place] TYPE: Emergency COMPLAINT: - FALL DIAGNOSES: - Gastro-esophageal reflux disease without esophagitis - Other local intermodal truck driver (current) drug therapy - Slipping, tripping and stumbling without falling, unspecified, initial encounter - Contusion of scalp, initial encounter 03/12/2022 18:03 [facility] [place] TYPE: Emergency COMPLAINT: - FATIGUE 02/26/2022 17:00 Jose THURMAN TYPE: Emergency DIAGNOSES: - Sepsis, unspecified organism - Post Radiation Problem - Secondary malignant neoplasm of brain - Peripheral vascular disease, unspecified - Headache - Acute kidney failure, unspecified - Foot Injury 02/16/2022 10:02 [facility] [place] TYPE: Emergency COMPLAINT: - STROKE SYMPTOMS DIAGNOSES: - Acute embolism and thrombosis of left femoral vein - alf (current) use of anticoagulants - Gastro-esophageal reflux disease without esophagitis - Other local intermodal truck driver (current) drug therapy - Acute embolism and thrombosis of unspecified deep veins of left distal lower extremity - Secondary malignant neoplasm of brain - Personal history of other malignant neoplasm of bronchus and lung - Acute embolism and thrombosis of left popliteal vein - Dysphasia - Contact with and (suspected) exposure to COVID-19 02/03/2022 12:46 [facility] [place] TYPE: Emergency COMPLAINT: - L HIP PAIN 01/24/2022 21:55 [facility] [place] TYPE: Emergency COMPLAINT: - RIGHT SIDE FLANK PAIN, SOB INPATIENT VISIT TRACKING (12 MO.) 05/31/2022 08:28 [facility] [place] TYPE: Medical Surgical COMPLAINT: - ENCEPHALOPATHY, PNEUMONIA DIAGNOSES: - Spontaneous ecchymoses - Nontraumatic intracerebral hemorrhage in hemisphere, cortical - Secondary malignant neoplasm of brain - Metabolic encephalopathy - Unspecified protein-calorie malnutrition - Secondary and unspecified malignant neoplasm of lymph node, unspecified - Secondary malignant neoplasm of bone - Secondary malignant neoplasm of right adrenal gland - Other halfway (current) drug therapy - Anemia in neoplastic disease - Presence of left artificial hip joint - Secondary malignant neoplasm of left adrenal gland - Gastro-esophageal reflux disease without esophagitis - Malignant neoplasm of unspecified part of unspecified bronchus or lung - Other disorder of circulatory system - Personal history of malignant neoplasm of breast - Neoplasm related pain (acute) (chronic) - Secondary malignant neoplasm of bone - Secondary malignant neoplasm of right adrenal gland - Secondary malignant neoplasm of left adrenal gland - Encephalopathy, unspecified - Acquired absence of both cervix and uterus - Hypomagnesemia - Gastro-esophageal reflux disease without esophagitis - Acquired absence of both cervix and uterus - Presence of left artificial hip joint - Contact with and (suspected) exposure to COVID-19 - Malignant neoplasm of unspecified part of unspecified bronchus or lung - Anemia, unspecified - Personal history of malignant neoplasm of breast - Unspecified protein-calorie malnutrition - Nontraumatic intracerebral hemorrhage in hemisphere, cortical - Pneumonia, unspecified organism - Neoplasm related pain (acute) (chronic) - Aphasia - Hypomagnesemia - Pneumonia, unspecified organism - Malignant neoplasm of unspecified site of unspecified female breast - Contact with and (suspected) exposure to COVID-19 - Secondary malignant neoplasm of brain - Metabolic encephalopathy - Secondary and unspecified malignant neoplasm of lymph node, unspecified - Anemia, unspecified - Personal history of COVID-19 - Other local intermodal truck driver (current) drug therapy - Personal history of COVID-19 03/12/2022 22:[address] [facility] [place] TYPE: Critical Care COMPLAINT: - SEPSIS DIAGNOSES: - Secondary malignant neoplasm of right adrenal gland - Pneumonia due to coronavirus disease 2018 - Personal history of other venous thrombosis and embolism - Other primary thrombophilia - Personal history of other venous thrombosis and embolism - Secondary malignant neoplasm of brain - Adverse effect of antineoplastic and immunosuppressive [...] neoplasm of intrapelvic lymph nodes - Other local intermodal truck driver (current) drug therapy - Antineoplastic chemotherapy induced pancytopenia - Secondary malignant neoplasm of left adrenal gland - Pneumonia due to other Gram-negative bacteria - Metabolic encephalopathy - Secondary malignant neoplasm of left adrenal gland - Presence of left artificial hip joint - Adverse effect of antineoplastic and immunosuppressive drugs, initial encounter - Personal history of malignant neoplasm of breast - Acute respiratory failure with hypoxia - COVID-19 - Presence of left artificial hip joint - COVID-19 - Secondary and unspecified malignant neoplasm of lymph nodes of head, face and neck - Other halfway (current) drug therapy - Other primary thrombophilia [...] Do not resuscitate - Do not resuscitate 02/16/2022 18:56 Jose THURMAN TYPE: Medical Surgical DIAGNOSES: - Malignant neoplasm of unspecified part of unspecified bronchus or lung - Diffuse Metastatic Disease - Secondary malignant neoplasm of unspecified site 02/03/2022 15:22 [facility] [place] TYPE: Medical Surgical COMPLAINT: - LT HIP FX DIAGNOSES: - Pathological fracture in neoplastic disease, left femur, initial encounter for fracture - Unspecified atrial fibrillation - watermelon inspector (current) use of aspirin - Pneumonia, unspecified [...] exposure to COVID-19 - Hyperlipidemia, unspecified - watermelon inspector (current) use of aspirin - Unspecified lump in unspecified breast - Acute respiratory failure with hypoxia - Disorder of adrenal gland, unspecified - Unspecified osteoarthritis, unspecified site - Unspecified atrial fibrillation - Other nonspecific abnormal finding of lung field - Other halfway (current) drug therapy - Gastro-esophageal reflux disease without esophagitis - Chronic kidney disease, unspecified - Hyperlipidemia, unspecified - Hypo-osmolality and hyponatremia - Unspecified osteoarthritis, unspecified site - Malignant neoplasm of unspecified part of right bronchus or lung - Pneumonia, unspecified organism - Disorder of adrenal gland, unspecified - Other local intermodal truck driver (current) drug therapy - Neoplasm related pain (acute) (chronic) - Hypo-osmolality and hyponatremia 01/25/2022 18:[address] [facility] [place] TYPE: Medical Surgical COMPLAINT: - POST OBSTRUCTIVE PNEUMONIA DIAGNOSES: - Neoplasm related pain (acute) (chronic) - [...] Neoplasm related pain (acute) (chronic) - Other halfway (current) drug therapy - 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 - Other nonspecific abnormal finding of lung field - Malignant neoplasm of upper-outer quadrant of left female breast - Malignant neoplasm of upper lobe, right bronchus or lung - Other halfway (current) drug therapy - Obesity, unspecified - Osteolysis, left thigh - Malignant neoplasm of middle lobe, bronchus or lung - Shortness of breath - Obesity, unspecified [...] of unspecified site of left female breast [email or web address]
[2022-10-15] MEDS ORDERED: CEPHALEXIN500 M1 PO (18:47)
--- NOTE | 2022-10-15 20:44 | EKG ---
[facility] [address] [place] [address] Signed Normal sinus rhythm Possible Lateral infarct , age undetermined Inferior-posterior infarct (cited on or before 12-MAR-2022) Abnormal ECG When compared with ECG of 29-MAY-2022 11:47, Borderline criteria for Lateral infarct are now present Confirmed by Graeme Jensen MD () on 10/15/2022 8:44:14 PM Electronically Signed By: GRAEME JENSEN MD 10/15/222043 PATIENT NAME: JOSE ANTONIO COY Electrocardiogram DATE OF : 58 PHYSICIAN: GRAEME JENSEN MD REPORT #: [id number] REPORT IS CONFIDENTIAL AND NOT TO BE RELEASED WITHOUT AUTHORIZATION
[2022-10-15] MEDS ORDERED: LEVOTHYROXINE50 MCG PO (22:25)
--- NOTE | 2022-10-16 01:00 | NUR ---
THIS RN DOWN TO ER TO TRANSFER PT TO MED/SURG. BEDSIDE REPORT RECEIVED. PT RESTING IN STRETCHER WITH RR EVEN AND UNLABORED. PT ON 8L O2 OXYMASK WITH O2 SATS BETWEEN 89-92%. THIS RN, RITCHIE LEE RN AND EDMOND CORTEZ TRANSFERED PT FROM STRETCHER TO HOSPITAL BED. TRANSFERED PT TO RM 120. RITCHIE LEE IN TO COMPLETE QUICK ADMISSION. RITCHIE HERNANDEZ IN TO ASSIST WITH VITALS AND MEDICATIONS. PORT ACCESSED IN ER. DRAWS BLOOD BACK WNL AND FLUSHES WNL. ABX STARTED, SEE NOV. PT RESTING IN BED WITH EYES CLOSED. RR EVEN AND UNLABORED. PT CONTINUES TO HAVE EYES CLOSED WHILE VITALS ARE BEING COMPLETE. PT OPENS EYES AND RESPONDS TO QUESTIONS. PT A&O TO SELF AND PLACE. PT REPORTS NO PAIN AT THIS TIME. PT CLOSES EYES AGAIN. THIS RN OUT OF ROOM TO CALL DR. JENSEN.
--- NOTE | 2022-10-16 01:38 | NUR ---
THIS RN TALKED WITH DR. JENSEN REGARDING PTs BLOOD PRESSURE. NEW ORDERS RECEIVED VERIFIED WITH READ BACK.
--- NOTE | 2022-10-16 02:22 | NUR ---
VITALS COMPLETE AFTER 500ML BOLUS. SECOND 500ML BOLUS STARTED. PT REMAINS RESTING IN BED WITH EYES CLOSED. RR EVEN AND UNLABORED. IV ABX STILL INFUSING. RESTING ON COUCH WITH EYES CLOSED.
--- NOTE | 2022-10-16 02:33 | NUR ---
ASSESSMENT COMPLETE. PT RESTING IN BED WITH EYES CLOSED RR EVEN AND UNLABORED. SNORING NOTED. LUNG SOUNDS CLEAR OTHERWISE. BOWEL TONES ACTIVE. LEFT GREAT TOE SCAB NOTED. STATES PT "USES A WALKER AT HOME AND WALKS OCCASIONALLY TO GO TO THE RESTROOM." PT DIAPHORETIC AND WARM TO THE TOUCH. NO OTHER NEEDS IDENTIFIED AT THIS TIME. CALL LIGHT IN REACH. BED ALARM ON.
--- NOTE | 2022-10-16 03:00 | NUR ---
SECOND 500ML BOLUS COMPLETE. VITALS COMPLETE. PT DIAPHORETIC. AXILLARY TEMPERATURE OBTAINED AND TEMPERATURE READING OF 97.7. NO OTHER NEEDS IDENTIFIED AT THIS TIME. THIS RN OUT OF ROOM TO CALL .
--- NOTE | 2022-10-16 03:12 | NUR ---
THIS RN CALLED DR. JENSEN REGARGING PTs BLOOD PRESSURE. TO PLACE NEW ORDERS.
--- NOTE | 2022-10-16 03:44 | NUR ---
THIS RN, AND RITCHIE LEE TRANSFERRED PT TO CCU. THIS RN GAVE BED SIDE REPORT TO RITCHIE IQBAL. NO OTHER NEEDS FROM THIS RN.
--- NOTE | 2022-10-16 03:50 | NUR ---
PT RECIEVED FROM MS FLOOR VIA BED WITH ACCOMPANING. PT DROWSY BUT ORIENTED TO SITUATION. PT DENIES PAIN OR NAUSEA. 6L 02 VIA NC KEEPING SPO2 >92%. LUNG SOUNDS COURSE AND DIM. INITIAL BLOOD PRESSURE 75/52 (61), HR 67. PERIPHREAL IV STARTED BY LANE DUGAN - IVF AND ABX NOW INFUSING AT THIS SITE. NOREPI STARTED VIA PORT AT 7.1 MCG/ML. AT BEDSIDE, ORIENTED TO ROOM AND PROVIDED LINENS.
--- NOTE | 2022-10-16 04:53 | NUR ---
PT RESTING IN BED WITH EYES CLOSED, SNORING. RR 15 WITH SP02 97% AT 6L VIA NC. NOREPI TITRATED TO 5MCG/MIN, 112/69 (83). REMAINS AT BEDSIDE, DENIES NEEDS AT THIS TIME.
--- NOTE | 2022-10-16 06:11 | NUR ---
RN IN ROOM TO DRAW AM LABS FROM PORT. PT RESTING WITH EYES CLOSED, RR EVEN AND UNLABORED. 02 TITRATED TO 4L, SP02 >90%. BP STABLE AT NOREPI DOSE OF 5MCG/MIN. REMAINS AT BEDSIDE.
--- NOTE | 2022-10-16 07:30 | NUR ---
RECEIVED REPORT FROM JOANIE DUGAN. ASSUMING CARE OF PT. PT RESTING IN BED, CALL LIGHT WITHIN REACH, BEDRAIL UP FOR SAFETY. PT HAS NOREPINEPHRINE AT 2.5MCG, NS @ 125ML/HR. PT LUNG SOUNDS COURSE, DIMINISHED, BOWEL TONES ACTIVE IN ALL QUADRANTS, AND HEART SOUNDS REGULAR, STRONG. PT DENIES PAIN OR NAUSEA AT THIS TIME. PT WANTING TO REST IN BED. AT BEDSIDE.
--- NOTE | 2022-10-16 08:10 | NUR ---
PT NOREPINEPHRINE PLACED ON STAND FOR FIVE MINUTES TO DUE BP AND MAP WITHIN NORMAL LIMITS. MEDICATION RESTARTED SHORTLY AFTER PT WENT TO 70/42 WITH MAP 55. PT DENIES SYMPTOMS DURING THIS TIME.
--- NOTE | 2022-10-16 08:45 | NUR ---
DR JENSEN AT BEDSIDE DISCUSSING PLAN OF CARE WITH PT. PT VERBALIZED UNDERSTANDING OF TREATMENT PLAN AND ALL QUESTIONS ANSWERED.
--- NOTE | 2022-10-16 10:13 | EKG ---
[facility] [address] [facility] [address] [place] [address] Signed Normal sinus rhythm Inferior-posterior infarct (cited on or before 12-MAR-2022) Possible Anterolateral infarct (cited on or before 29-MAY-2022) Abnormal ECG When compared with ECG of 15-OCT-2022 14:08, Questionable change in initial forces of Anterior leads Confirmed by Graeme Jensen MD () on 10/16/2022 10:12:53 AM Electronically Signed By: GRAEME JENSEN MD 10/16/22 1013 PATIENT NAME: JOSE ANTONIO COY Electrocardiogram DATE OF : 58 PHYSICIAN: GRAEME JENSEN MD REPORT #: [id number] REPORT IS CONFIDENTIAL AND NOT TO BE RELEASED WITHOUT AUTHORIZATION
--- NOTE | 2022-10-16 10:14 | NUR ---
PT NOREPINEPHRINE PLACED ON STABNDBY. PT ABX STARTED, PT RESTING IN BED, CALL LIGHT WITHIN REACH, BEDRAILS UP FOR SAFETY. DAUGHTER AT BEDSIDE.
--- NOTE | 2022-10-16 10:21 | NUR ---
NOREPINEPHRINE STARTED AGAIN AT 2.5. BP 76/54 (62). HR 68.
--- NOTE | 2022-10-16 10:23 | NUR ---
PT HAS NOREPINEPHRINE AT 1. PT TOLERATING WELL.
--- NOTE | 2022-10-16 12:02 | NUR ---
PT NOREPINEPHRINE PLACED ON STANDBY DUE TO PT BP WITHIN NORMAL LIMITS AND VANCO ABX STARTED. PT INFORMED OF BP CHANGES AND INFUSION. PT AFTERNOON ASSESSMENT COMPLETED, NO CHANGES NOTED. PT COMPLAINT OF BEING TIRED BUT STATES THIS HAS BEEN HER NORMAL SINCE HER CANCER DIAGNOSIS. PT ENCOURAGED TO GET UP IN CHAIR SOMETIME TODAY AFTER NAP AND TO INCREASE FOOD INTAKE.
--- NOTE | 2022-10-16 13:00 | NUR ---
DR JENSEN UPDATED ON PTS BLOOD PRESSURES AND ASSESSMENT FINDINGS. PLAN ESTABLISHED TO KEEP PT ON LOW AMOUNT OF LEVOPHED FOR SYSTOLIC BP GREATER THAN 90. PRIMARY RN LARA AND PT UNDERSTAND PLAN OF CARE.
--- NOTE | 2022-10-16 13:55 | NUR ---
PT CALLED, IV BEEPING. FLUID BAG EMPTY, NEW BAG PLACED. PT RESTING IN BED. PT ENCOURAGED TO HAVE BEDBATH AND PT DECLINED AT THIS TIME. DENIES NEEDS, NAUSEA, OR PAIN. PT HAS CALL LIGHT WITHIN REACH AND BEDRAIL UP FOR SAFETY.
--- NOTE | 2022-10-16 15:40 | NUR ---
AFTERNOON ASSESSMENT COMPLETED. PT ALERT AND SMILING IN BED WHILE TALKING WITH . PT LUNG SOUNDS CLEAR IN UPPER QUADRANTS AND COURSE/DIMISHED IN LOWER. PT DENIES SHORTNESS OF BREATH. PT HEART SOUNDS STRONG, BOWEL TONES ACTIVE. PT DENIES NAUSEA, VOMITING, PAIN. PT TITRATED TO 2LNC O2 WAS 99% ON 3L. PT HAS NS @125ML/HR. PT HAS CALL LIGHT WITHIN REACH, BEDRAIL UP FOR SAFETY, AND PT BELONGINGS AT BEDSIDE.
--- NOTE | 2022-10-16 17:20 | NUR ---
PT 1PA TO BEDSIDE COMMODE TO VOID AND THEN TO THE CHAIR. PT TOLERATED WELL, OXYGEN SATURATION 95% DURING TRANSFER. PT REQUESTED ZOFRAN BEFORE EATING MEAL. CALL LIGHT WITHIN REACH AND PT BELONGINGS AT BEDSIDE.
--- NOTE | 2022-10-16 17:35 | NUR ---
ATTEMPTED TO GET ZOFRAN OUT OF [facility]. [facility] ORDER WAS D/C'D. DR FLEMING CALLED AND AN ORDER WAS OBTAINED FOR ZOFRAN PT REPORTED SINCE SHE STARTED IMMUNOTHERAPY SHE IS UNABLE TO EAT WITHOUT VOMITING UNLESS SHE HAS ZOFRAN. PHARMACY CALLED TO EXPIDITE THE PROCESS. PT GIVEN MEDICATION AND PT NOW EATING DINNER.
--- NOTE | 2022-10-16 19:30 | NUR ---
REPORT RECEIVED FROM LARA DUGAN. PT RESTING IN BED WITH EYES CLOSED, RR 16, SPO2 93% ON 2L/O2.
--- NOTE | 2022-10-16 20:35 | NUR ---
CALL TO DR FLEMING TO UPDATE RE PTS REQUEST FOR BOWEL MEDS, MIRALAX ORDERED.
--- NOTE | 2022-10-16 21:00 | NUR ---
SHORTLY AFTER STARTING VANCOMYCIN INFUSION PT LET HER KNOW SHE FELT CHEST PAIN AND WAS HAVING DIFFICULTY SPEAKING SO HE CALLED FOR HELP. SHE IS IN NO APPAARENT DISTRESS, REPORTS FEELING A SUDDEN SHARP PAIN STARTING IN MID STERNUM AND SPREADING TO LEFT LATERAL CHEST. ALSO SHE REPORTS THAT DURING THE EPISODE SHE WAS NOT ABLE TO SPEAK VERY WELL, "I COULD ONLY JUST BARELY WHISPER. BY THE TIME THIS RN ARRIVED. IN ROOM SHE STATES PAIN IS NOW SUBSIDING, DID NOT NOTICE ANY CHANGE IN PAIN WITH RESPIRATIONS, RESP EVEN AND UNLABORED, SPO2 95% AND HR 70'S. VANCOMYCIN STOPPED AND DR FLEMING NOTIFIED, ORDER GIVEN TO HOLD VANCO FOR NOW. PT AND INFORMED OF PLAN AND STATE THEY WILL CALL IF IT HAPPENS AGAIN.
--- NOTE | 2022-10-17 00:26 | NUR ---
PT'S O2 SATS HAVE DROPPED, NOTED TO BE 85%, IN TO CHECK ON PT AND SHE STATES "AM I SUPPOSED TO HAVE MORE CORDS ON ME?", OXYGEN FOUND OFF AND PT ON ROOM AIR. OXYGEN REAPPLIED AT 2L/O2 AND SATS UP TO 96-99%, ASSESSMENT DONE, PT DENIES NEEDS, AWAKE IN BED WATCHING TV WITH SLEEPING ON THE COUCH. STATES SHE HAS NOT HAD ANY MORE EPISODEDS OF THE STERNAL PAIN SHE HAD PREVIOUSLY THIS EVENING. LEVOPHED REMAINS AT 3MCG/MIN AND IVF INFUSING AT 125ML/HR.
--- NOTE | 2022-10-17 04:11 | NUR ---
MONITOR NOTED TO SUDDENLY BE OFF, IN TO CHECK ON PT, PT HAD BEGUN GETTING HERSELF OUT OF BED AND HAD INADVERTENTLY PULLED PERIPHERAL IV OUT. ASSISTED WITH GETTING TO TOILET THEN WASHEED HANDS AND ASSISTED BACK TO BED. ASSESSMENT DONE. BED ALARM PLACED. PT CONT ON 2L/O2 AND LEVOPHED AT 2MCG/MIN.
--- NOTE | 2022-10-17 06:43 | NUR ---
LEVOPHED DRIP HAD BEEN OFF APPROX 30 MINUTES AND BPS DOWN TO 70/50'S, RESTARTED AT 1MCG/MIN.
--- NOTE | 2022-10-17 07:30 | NUR ---
REPORT RECIEVED. PATIENT IS RESTING IN BED. LEVOPHED GTT INFUSING AT 2.5 MCG/MIN. IVF AT 125ML/HR, ZOSYN AT 25 ML/HR. ALL INFUSING TO RIGHT PORT-CATH.
--- NOTE | 2022-10-17 07:45 | NUR ---
DR. FLEMING HERE TO SEE PATIENT. NO FUTHER ORDERS AT THIS TIME.
--- NOTE | 2022-10-17 08:00 | NUR ---
ALL IVF AND IV MEDS ON HOLD FOR BLOOD DRAW. AFTER BLOOD OBTAINED, ALL FLUIDS INFUSING. ASSESSMENT DONE. OOB TO AMBULATE TO BR. IS SOMEWHAT UNSTEADY ON FEET. TO CHAIR FOR BREAKFAST. O2 TO OFF O2 SAT ON 2 L NC 100. WILL CONTINUE TO MONITOR O2 SATS. PATIENT DENIES SHORTNESS OF BREATH.
--- NOTE | 2022-10-17 09:00 | NUR ---
TOOK FEW BITES OF BREAKFAST. DENEIS NAUSEA, HAS POOR APPETITE. PO MEDS GIVEN.
[2022-10-17] MEDS ORDERED: FENTANYL1 EAC4 TD (09:20)
--- NOTE | 2022-10-17 10:00 | NUR ---
Yolande CORBIN RN STARTING IV.
[2022-10-17] MEDS ORDERED: ATORVASTATIN CA20 MG PO (10:13)
--- NOTE | 2022-10-17 10:18 | NUR ---
MED REC COMPLETE
--- NOTE | 2022-10-17 10:30 | NUR ---
NEW IV SITE STARTED TO RIGHT BASILIC VEIN IN RIGHT ARM, THIS DONE BY ALTAF DUGAN. IV VANCO NOW INFUSING. PATIENT NOW IN ROOM. WILL STAY IN ROOM WITH PATIENT AND MONITOR FOR ANY REACTION.
--- NOTE | 2022-10-17 11:00 | NUR ---
AMBULATED TO BR WITH ASSIST OF WALKER. RN WITH PATIENT.
--- NOTE | 2022-10-17 11:40 | NUR ---
TOLERATED VANCO WELL. NO CHEST PAIN OR SHORTNESS OF BREATH.
--- NOTE | 2022-10-17 11:50 | NUR ---
NO CHANGES IN ASSESSMENT. PATIENT IS SITTING UP IN BED FOR LUNCH. PATIENT AND DAUGHTER ARE IN ROON. PATIENT DENIES PAIN OR NAUSEA. LEVOPHED GTT INFUSING AT 1.5 MCG/MIN.
--- NOTE | 2022-10-17 13:31 | NUR ---
PT SITTING UP IN BED-TV ON AND FAMILY ATTENDING. PT IS JUST TO BEGIN EATING LUNCH. HAD PLEASANT VISIT, LEFT G.POST AND BLESSING. WILL FOLLOW
--- NOTE | 2022-10-17 13:43 | NUR ---
SITTING UP IN BED VISITING WTTH DAUGHTER. THE PLAN OF CARE REMAINS THE SAME. THE PATIENT WILL GO HOME WITH HER AND DAUGHTER. NO DME NEEDED.PATIENT HAS ALL THE EQUIPMENT THAT SHE NEEDS AT HOME.
--- NOTE | 2022-10-17 15:00 | NUR ---
UP TO CHAIR. DAUGHTER AT BEDSIDE.
--- NOTE | 2022-10-17 15:06 | NUR ---
CALL LIGHT ANSWERED, 1PA TO BR FOR VOID. PATIENT SLIGHTLY UNSTEADY ON HER FEET AND CONFUSED. PATIENT SITTING UP IN RECLINER AT THIS TIME. DAUGHTER IN ROOM. RITCHIE BERRY IN WITH WARM BLANKETS.
--- NOTE | 2022-10-17 20:00 | NUR ---
Bedside report received from outgoing nurse, RITCHIE Pineda. Initial assessment performed with no critical interventions necessary. All vital signs stable with patient on Levophed 4mg infusion at 1 mg/hr. Patient is slightly confused with periods of hallucinations. No complaints or indications of respiratory distress, fever or acute pain. Patient assisted to toilet with use of walker and help of where she had a small loose stool. Patient assisted back to bed and family remains at bedside.
--- NOTE | 2022-10-17 22:00 | NUR ---
Patient asleep and resting quietly. All vital signs stable with no indications of respiratory distress, fever or pain. Family (daughter) remains at bedside.
--- NOTE | 2022-10-18 | NUR ---
Repeat assessment performed with no acute changes since previous assessment unless noted. All vital signs stable with levophed infusing at 1 mcg/hr. Daughter at bedside while patient asleep.
--- NOTE | 2022-10-18 02:00 | NUR ---
Patient helped to bedside commode. She complained of head pain with standing up. Will administer pain medicationa and continue to monitor.
--- NOTE | 2022-10-18 10:00 | NUR ---
MICHAEL HUNG TO RIGHT ARM SL. SL IRRIGATED FREELY WITH 10 ML NS. PATIENT IN ROOM.
--- NOTE | 2022-10-18 12:00 | NUR ---
OOB TO COMMODE TO VOID THEN TO CHAIR FOR LUNCH. IS MUCH MORE WEAK AND UNSTEADY ON FEET TODAY, AND IS VERY DROWSY.
--- NOTE | 2022-10-18 12:12 | NUR ---
PATIENT RESTING IN BED, WOKE TO VOICE. LUNCH PROVIDED, PATIENT HESITANT, BUT AGREES TO TAKE A FEW BITES WITH RITCHIE COHEN ASSISTING. VITALS CHARTED. ROOM TIDIED. IN ROOM. CALL LIGHT IN EASY REACH.
--- NOTE | 2022-10-18 13:39 | NUR ---
PT SLEEPING, DID NOT DISTURB
--- NOTE | 2022-10-18 14:00 | NUR ---
HAS BEEN VERY SLEEPY TODAY. INCREASED WEAKNESS. HAS BEEN USING COMMODE TO VOID DENIES JONH. HAS BEEN SLOW TO ANSWERE QUESTIONS. MINIMAL CONVERSATION. UYESTERDAY PATIENT WAS MUCH MORE TALKATIVE. IN ROOM.
--- NOTE | 2022-10-18 14:20 | NUR ---
PT HAS JUST AWAKENED, SITTING IN CHAIR AND RASHID ATTENDING. PT IS PLEASANT, THANKED ME FOR COMING BY. GAVE BLESSING AND WILL FOLLOW
--- NOTE | 2022-10-18 16:00 | NUR ---
ASSESSMENT UNCHANGED. REMAINS SOMULENT. LEVOPHED DRIP OFF AT APPROX [address] FLEMING AWARE.
--- NOTE | 2022-10-18 18:00 | NUR ---
WHEN ATTEMPING TO TAKE DINNER, HAD A SMALL REGERD TO FOOD, APPROX 50 ML. PATIENT REFUSE FUTHER FOOD.
--- NOTE | 2022-10-18 19:12 | NUR ---
BP-86/51 (62). WILL NOTIFY . LEVOPHED DRIP RMAINS OFF.IV INFUSING AT 125 ML/HR.
--- NOTE | 2022-10-18 19:42 | NUR ---
DR. FLEMING AWARE OF RECENT BP TRENDS. SAID IF MAP IS > 62 TO RESTART LEVOPHED GTT. DIESEL ENGINE ENGINEER AWARE.
--- NOTE | 2022-10-18 20:00 | NUR ---
Bedside report received from outgoing nurse, RITCHIE Pineda. Initial assessment performed with no critical interventions necessary. All vital signs stable with no indication or complaints of respiratory distress, fever or pain. Patient no longer on levophed drip and bp is falling within parameters of MAPS staying above 62. Family at bedside.
--- NOTE | 2022-10-18 22:00 | NUR ---
Per patient request, Zyrtex and phenazopyridine added to medication profile. All vital signs stable.
--- NOTE | 2022-10-19 | NUR ---
Repeat assessment performed with no acute change since previous assessment unless noted. All vital signs stable with no indications of respiratory distress, fever or pain. Patient resting comfortably with at bedside.
--- NOTE | 2022-10-19 02:00 | NUR ---
Patient sleeping comfortably with at bedside. All vital signs stable.
--- NOTE | 2022-10-19 03:10 | NUR ---
Patient removed supplemental oxygen and patient's oxygen saturation decreased to 80. Nasal cannula put back in place with supplemtnal oxygen increased to 3 LPM. O2 saturation is now 95%.
--- NOTE | 2022-10-19 04:11 | NUR ---
Repeat assessment performed with no acute changes since initial assessment unless noted. All vital signs stable with no indications of respiratory distress, fever or pain. at bedside.
--- NOTE | 2022-10-19 07:15 | NUR ---
PATIENT RESTING, EYES CLOSED, RR EVEN AND UNLABORED; AT BEDSIDE.
--- NOTE | 2022-10-19 08:16 | NUR ---
PATIENT AWAKE IN BED, REQUESTING ASSISTANCE TO BSC. SPOUSE REMAINS AT BEDSIDE. PATIENT 2 ASSIST WITH WALKER TO BSC; PATIENT ABLE TO BEAR SOME WEIGHT BUT NOT FULL WEIGHT, PATIENT IS A STRONG 2 PERSON ASSIST. PATIENT DID BETTER WITH USE OF WALKER. PATIENT IS ORIENTED TO SELF, TIME, SITUATION, HOWEVER, PATIENT HAD TO BE ENCOURAGED TO REMEMBER WE ARE INTO SEPTEMBER 2022, STATING IT WAS AUGUST 2022. LUNGS ARE COARSE WITH BILATERAL CRACKLES IN BASES, LEFT GREATER THAN RIGHT. BOWEL SOUNDS ACTIVE, ABDOMEN SOFT. CAP REFILL ALL EXTREMETIES < 3 SECONDS. LEFT GREAT TOE ULCER APPEARS TO BE HEALING. PATIENT HAS NO COMPLAINTS OF PAIN AT TIME OF THIS ASSESSMENT, EXCEPT TO SAY HER BACK IS SORE FROM THE BED. PATIENT WAS ASSISTED FROM BSC TO CHAIR. BREAKFAST TRAY GIVEN AND PATIENT ENCOURAGED TO EAT.
--- NOTE | 2022-10-19 09:30 | NUR ---
PATIENT ASSISTED TO BATHROOM WITH WALKER. PATIENT APPEARS STRONGER THAN THIS AM AND IS ABLE TO BEAR WEIGHT WITH USE OF WALKER AND NO ASSISTANCE FROM STAFF. PATIENT TOLERATED WELL, HOWEVER, ROOM AIR SATS DOWN TO 89% AFTER WALKING. PATIENT RECOVERED WELL ON 2LNC.
--- NOTE | 2022-10-19 10:21 | NUR ---
PER AM MEETING PATIENT TO TRANSFER TO MS TODAY.
--- NOTE | 2022-10-19 14:00 | NUR ---
PATIENT TRANSFERRED TO / ROOM 109 VIA BED ON ROOM AIR. PATIENT ARRIVED AND RA SATS 85%, PATIENT IN NO DISTRESS. OXYGEN APPLIED AT 2LNC, O2 SATS INCREASED TO MID 90'S. ALL PATIENT'S BELONGINGS TRANSFERRED WITH PATIENT AND SPOUSE. REPORT GIVEN TO RITCHIE DAS, CARE TRANSFERRED.
--- NOTE | 2022-10-19 14:03 | NUR ---
pt to room 109, 2l oxygen, vitals done - oriented to room.
--- NOTE | 2022-10-19 16:06 | NUR ---
rn in to round on pt, pt and agree room temp is good, denies need for extra warm blkt - has personal fuzzy blkt on bed.
--- NOTE | 2022-10-19 18:13 | NUR ---
IV ABX INFUSING WITH R CHEST PORTACATH WNL. PT AWAKE AND TALKATIVE WITH STAFF AND . PT DENIES NEEDS, CALL LIGHT IN REACH.
--- NOTE | 2022-10-19 19:05 | NUR ---
RECEIVED REPORT FROM THIAGO DUGAN. PT RESTING IN BED WATCHING TV. IV FLUIDS INFUSING DIRECTED INTO PORT, WNL. PT IN RECLINER AT BEDSIDE. CALL LIGHT WITHIN REACH, NO FURTHER NEEDS AT THIS TIME.
--- NOTE | 2022-10-19 20:25 | NUR ---
IN PT ROOM FOR FROG OR OYSTER FARMWORKER, VS, I/O'S, AND ASSESSMENT. PT IS A&O TO ONLY SELF AT THIS TIME. 3 L OF O2 VIA NC IN PLACE AND VIA CPOX 95%. LUNGS ARE DIM AND CLEAR IN UPPER LOBES AND CRACKLES IN BASES. PT RR IS 26 AND BREATHS ARE SHALLOW BUT NO APPARENT DISTRESS AT THIS TIME. PT REPORTS NO PAIN, NAUSEA, N/T, DIZZINESS, OR SOB AT THIS TIME, BREATHING TX PROVIDED. PULSES ARE PRESENT THROUGHOUT AND SKIN IS PINK/WARM/DRY. PT HAS HEATING BLANKET ON AT THIS TIME. NO SIGNS OF SKIN BREAKDOWN, SCABBED SORE ON LFT BIG TOE IS OPEN TO AIR W/NO SIGNS OF INFX. BOWEL TONES ARE ACTIVE X4. IV FLUIDS INFUSING DIRECTED INTO PORT, SITE IS WNL. CALL LIGHT WITHIN REACH, NO FURTHER NEEDS AT THIS TIME. AND DAUGHTER AT BEDSIDE.
--- NOTE | 2022-10-19 21:05 | NUR ---
IN PT ROOM FOR 2PA W/JENNIFER RN FOR PT TO BC W/FWW. PT GAIT IS WEAK AND UNSTEADY AT THIS TIME, REQUIRES FREQUENT DIRECTING TO TOILET. URINE VOID RECORDED. PT NOW BACK IN BED. PT REPORTS NO PAIN OR NAUSEA AT THIS TIME. O2 VIA NC INCREASED FROM 3L TO 6L W/AMBULATION D/T DSAT TO MID 80'S. NEW CPOX PLACED ON LFT HAND FOR PT COMFORT. CALL LIGHT WITHIN REACH, NO FURTHER NEEDS AT THIS TIME.
--- NOTE | 2022-10-19 21:45 | NUR ---
IN PT ROOM D/T PULLED OFF CPOX. REPLACED W/NEW CPOX SENSOR ON FINGER. GOOD WAVEFORM ON MONITOR, O2 SHOWS 90% AT THIS TIME. CALL LIGHT WITHIN REACH, NO FURTHER NEEDS AT THIS TIME.
--- NOTE | 2022-10-19 23:30 | NUR ---
PT RESTING W/EYES CLOSED. RESPIRATIONS ARE EVEN AND UNLABORED, NO SIGNS OF DISTRESS. IV ABX INFUSING DIRECTED INTO PORT, SITE WNL. CPOX SHOWS PT AT 93% ON 3L OF O2 VIA NC. PT IN RECLINER ON LAPTOP AT BEDSIDE. CALL LIGHT WITHIN REACH.
--- NOTE | 2022-10-20 00:28 | NUR ---
HOURLY ROUNDING, PT IS AWAKE IN BED REQUESTING HELP REMOVING CPOX SENSOR. EDUCATED PT OF IMPORTANCE OF OXYGEN MONITORING, PT STATES UNDERSTANDING. 2PA W/FWW TO BC W/2ND RN MASSIMO. PT GAIT WEAK AND REQUIRES FREQUENT DIRECTION. URINE VOID RECORDED. O2 STABLE OVER 90% DURING AMBULATION. PT NOW RESTING IN BED W/WARMING BLANKET AT HER REQUEST. HOB ELEVATED TO PT COMFORT. IV FLUIDS INFUSING DIRECTED. SIP OF WATER PROVIDED. CALL LIGHT WITHIN REACH, NO FURTHER NEEDS AT THIS TIME. ASLEEP AT BEDSIDE.
--- NOTE | 2022-10-20 00:43 | NUR ---
IN PT ROOM D/T ALARMING CPOX. PT RESTING W/EYES CLOSED AND DOES NOT APPEAR TO BE IN ANY DISTRESS, CPOX SHOWS O2 OF 86%. NC POSITIONED AROUND EYES AT THIS TIME, REPLACED IN NOSE, PT AWAKENS STARTLED. STATES "THE CATS WERE TRYING TO GET ME BUT I FOUGHT THEM OFF". CPOX READS 91% ON 2L OF O2 VIA NC AT THIS TIME. CALL LIGHT WITHIN REACH, NO FURTHER NEEDS AT THIS TIME.
--- NOTE | 2022-10-20 02:29 | NUR ---
IN PT ROOM TO START ABX. PORT WNL AND BRISK BLOOD RETURN, IV ABX NOW INFUSING DIRECTED. PT REPORTS NEED TO USE BEDSIDE COMMODE. 2PA W/FWW TO BC. GAIT IS WEAK AND PT IS UNSTEADY, REQUIRING FREQUENT DIRECTIONS. PT IS ORIENTED ONLY TO SELF AT THIS TIME. URINE VOID RECORDED. PT NOW BACK IN BED AND BOOSTED. SHE STATES SHE IS COMFORTABLE AT THIS TIME, REPORTS NO PAIN OR NAUSEA. NO ACUTE CHANGES FROM PREVIOUS ASSESSMENT. PT NOW ON 2L OF O2 VIA NC W/O2 SATS AT 95%. RR IS 24 AND SHALLOW BUT UNLABORED AND EVEN. PT REPORTS NO SOB, DIZZINESS, OR N/T. CALL LIGHT WITHIN REACH, NO FURTHER NEEDS AT THIS TIME.
--- NOTE | 2022-10-20 03:00 | NUR ---
IN PT ROOM D/T REQUESTING TYLENOL FOR PT. PT STATES SHE HAS A HEADACHE 8/10 AT THIS TIME, PRN TYLENOL GIVEN (SEE EMAR). PT TO RECLINER FOR COMFORT. PT AWAKE AND AT BEDSIDE RUBBING PT HEAD FOR COMFORT. STATES NO FURTHER NEEDS AT THIS TIME. ABX INFUSING DIRECTED, CALL LIGHT WITHIN REACH. 2L OF O2 VIA NC IN PLACE W/CPOX SHOWING 96%.
--- NOTE | 2022-10-20 03:45 | NUR ---
ROUNDING. PT IS RESTING IN RECLINER W/EYES CLOSED. RESPIRATIONS ARE EVEN AND UNLABORED, NO SIGNS OF DISTRESS. CALL LIGHT WITHIN REACH. READING BOOK ON COUCH NEXT TO PT. PT APPEARS COMFORTABLE AT THIS TIME. ABX INFUSING DIRECTED.
--- NOTE | 2022-10-20 05:03 | NUR ---
IN PT ROOM FOR VS, I/O'S. PT IS RESTING IN RECLINER A&O TO ONLY SELF. PT REPORTS SLIGHT HEADACHE REMAINS. VSS, BP SOFT THIS AM. PT IS NOT SYMPTOMATIC AT THIS TIME BESIDES SLIGHT HEADACHE. PT STATES SHE IS COMFORTABLE AT THIS TIME AND IS NOW RESTING W/HER EYES CLOSED. CALL LIGHT WITHIN REACH, ABX INFUSING DIRECTED, PORT SITE WNL.
--- NOTE | 2022-10-20 06:36 | NUR ---
IN PT ROOM FOR 2PA W/FWW TO , URINE VOID RECORDED. PT BACK INTO RECLINER AT THIS TIME. PT REPORTS NO PAIN OR NAUSEA AT THIS TIME. CONT IV FLUIDS INFUSING AT THIS TIME. PT ON 2L OF O2 VIA NC, O2 REMAINED OVER 90% DURING AMBULATION. PT GAIT IS UNSTEADY AND WEAK. SLIGHT REDNESS ON RT SIDE OF REAR CHEEK, BLANCHABLE. MORNING SIGN ERECTOR, PT TOLERATED WELL, NO DIFFICULTY SWALLOWING. PT NOW RESTING IN RECLINER DRINKER RT BEER W/ AT BEDSIDE. CALL LIGHT WITHIN REACH, NO FURTHER NEEDS AT THIS TIME.
--- NOTE | 2022-10-20 07:15 | NUR ---
BEDSIDE HANDOFF REPORT RECEIVED FROM KNOWLEDGE ANALYST RN. PT SITTING IN CHAIR, ASSISTED TO BED. AT BEDSIDE. PT COMPLAINT OF HEADACHE, WILL PROVIDE TYLENOL WHEN AVAILABLE. PT DENIES OTHER NEEDS AT THIS TIME.
--- NOTE | 2022-10-20 08:30 | NUR ---
PT RESTING IN BED. RECEIVING NEB FROM BLEMISH REMOVER. PT ALERT, ORIENTED TO ALL BUT DATE. PT ON 2L NC, LUNG SOUNDS CLEAR, DENIES SOB. PT WITH HEADACHE 05/03, GIVEN TYLENOL. BOWEL TONES ACTIVE, DENIES NAUSEA, SMALL APPETITE, ORDERED TOAST FOR BREAKFAST. CMS INTACT, WITHOUT EDEMA. PORT TO RIGHT CHEST, FLUSHED, PATENT, BLOOD DRAWN FOR AM LABS, FLUSHED, IV FLUIDS RESUMED. DISCUSSED PLAN OF CARE FOR THE DAY WITH PT AND , REQUESTING SHOWER TODAY AND WILL PLAN FOR AFTER PHYSICAL THERAPY.
--- NOTE | 2022-10-20 09:30 | NUR ---
PT IN BATHROOM WITH OCCUPATIONAL THERAPY AND , ASSISTED TO SITTING IN CHAIR. IV VANCO INFUSION STARTED. PT 93% ON ROOM AIR AFTER ACTIVITY, OXYGEN LEFT OFF AT THIS TIME, CONTINUOUS PULSE OX IN PLACE. PT CONCERNED THAT PT SEEMS A LITTLE MORE CONFUSED TODAY, ORIENTED TO ALL BUT DATE, WILL CONTINUE TO MONITOR. PT AND DENY OTHER NEEDS AT THIS TIME.
--- NOTE | 2022-10-20 10:51 | NUR ---
PT ASSISTED FROM CHAIR TO BED. IV VANCO INFUSION COMPLETED, IV ZOSYN INFUSION STARTED. PT RATES PAIN 7/10, DECLINING ADDITIONAL PAIN MEDICATION AT THIS TIME. PT O2 SATS AT REST 85%, PLACED ON 1L NC. DAUGHTER AT BEDSIDE, DENIES ADDITIONAL NEEDS AT THIS TIME.
--- NOTE | 2022-10-20 11:54 | NUR ---
PT SLEEPING DID NOT DISTURB. WILL FOLLOW
--- NOTE | 2022-10-20 14:24 | NUR ---
SCOPALAMINE PATCH REMOVED PER ORDER.
--- NOTE | 2022-10-20 15:39 | NUR ---
NO CHANGE IN THE DISHCHARGE PLAN OF CARE. THE PATIENT WILL GO HOME WITH HER .ALSO PATIENT'S DAUGHTER IS VERY INVOLVED IN HER MOTHER'S CARE.
--- NOTE | 2022-10-20 19:36 | NUR ---
RECEIVED REPORT FROM DAY SHIFT RN. PATIENT IS RESTING IN RECLINER. NO NEEDS NOTED. CALL LIGHT IN REACH.
--- NOTE | 2022-10-20 20:14 | NUR ---
PATIENT ASSISTED TO BED A 2PA W/FWW. PATIENT IS WEAK WITH AMBULATION. PATIENT IS AAOX3 AND IS DROWSY. PM MEDS GIVEN PER ORDER. PATIENT REPORTS A HEADACHE, PRN MEDS GIVEN PER ORDER. IV INFUSING IN PORT. PORT DRAWS BACK BLOOD. PATIENT DENIES ANY NAUSEA. PATIENT DENIES ANY NEEDS. PATIENT IS ON 1L VIA NC. PATIENTS IS IN ROOM. AND PATIENT DENIES ANY NEEDS. CALL LIGHT IN REACH. BED ALARM ON FOR SAFETY. LEFT TO GO GET FOOD.
--- NOTE | 2022-10-20 20:28 | NUR ---
PT UP TO BSC AND BACK TO BED WITH 2 PA. PT WITH CONFUSION, DOES NOT FOLLOW DIRECTIONS WELL. BED ALARM REPLACED. PT DENIES FURTHER NEEDS AT THIS TIME. CALL LIGHT IN REACH.
--- NOTE | 2022-10-20 20:58 | NUR ---
COMMUNITY HEALTH COUNSELOR TO ROOM FOR CPOX ALARMING, SA02 @ 80% ON 2 LPM. PT RESTING WITH EYES CLOSED, BREATHING THROUGH HER NOSE, RESPIRATIONS EVEN AND UNLABORED. O2 INCREASED TO 4LPM, SA O2 INCREASED TO 83%. O2 INCREASED TO 6LPM, SAO2 89%. RT NOTIFIED, AT BEDSIDE TO ASSESS PT. PT WAKES EASILY TO RT TOUCH. RT REMAINS AT BEDSIDE COMMUNITY HEALTH COUNSELOR STEPS OUT. CALL LIGHT IN REACH. BED ALARM ACTIVE.
--- NOTE | 2022-10-20 21:51 | NUR ---
PATIENT IS RESTING IN BED WITH EYES CLOSED, RR 16. CPOX READINGS ARE WNL. PATIENT TITRATED TO 4L VIA NC. IS SITRTING ON COUCH EATING. UPDATED PATIENTS ON INCREASE IN OXYGEN. ALL QUESTIONS ANSWERED. NO NEEDS NOTED. CALL LIGHT IN REACH. BED ALARM ON FOR SAFETY.
--- NOTE | 2022-10-21 00:01 | NUR ---
PATIENT IS RESTING IN BED WITH EYES CLSOED, RR 17. CPOX READINGS ARE WNL. PATIENT TITRATED TO 3L VIA NC. CALL LIGHT IN REACH. ASLEEP ON COUCH. BED ALARM ON FOR SAFETY.
--- NOTE | 2022-10-21 02:30 | NUR ---
PATIENT IS RESTING IN BED WITH EYES CLSOED, RR 17. CALL LIGHT IN REACH. BED ALARM ON FOR SAFETY. IV INFUSING PER ORDER. PATIENTS IS ASLEEP ON THE COUCH.
--- NOTE | 2022-10-21 03:14 | NUR ---
PATIENT ASSISTED TO REPOSITION IN BED. PATIENT DENIES ANY PAIN. PATIENT REMAINS ON 2L VIA NC. CPOX READINGS ARE WNL. IV INFUSING PER ORDER. PATIENT DENIES ANY NEEDS. CALL LIGHT IN REACH. BED ALARM ON FOR SAFETY. ASLEEP ON COUCH.
--- NOTE | 2022-10-21 04:22 | NUR ---
PATIENT IS RESTING IN BED ON HER RIGHT SIDE. CPOX READINGS ARE WNL. PAITIENT IS ON 2L VIA NC. PATIENTS IV INFUSING PER ORDER. CALL LIGHT IN REACH. BED ALARM ON FOR SAFETY.
--- NOTE | 2022-10-21 06:32 | NUR ---
PATIENT IS RESTING BED. PATIENT REPOSITIONED. PATIENT DENIES ANY PAIN. PATIENTS VITALS TAKEN AND RECORDED. INTAKE AND OUTPUT RECORDED. PATIENTS AM MEDS PER ORDER. PATIENT TITRATED TO 1L VIA NC. CPOX IN USE. NO FURTHER NEEDS NOTED. CALL LIGHT IN REACH. BED ALARM ON FOR SAFETY. PATIENTS HAS LEFT FOR THE DAY.
--- NOTE | 2022-10-21 07:10 | NUR ---
Report from Simone Moses RN. Patient resting in bed, respirations even and unlabored. Oxygen in place. Allowed to rest at this time. Call light in reach. Bed rails up X2.
--- NOTE | 2022-10-21 09:00 | NUR ---
IN ROOM TO ASSESS PATIENT AND GIVE AM MEDICATIONS. INCONTINENT OF LARGE AMOUNT OF LOOSE STOOL. AMBULATES TO BATHROOM WITH 1 PERSON ASSIST AND WALKER. POOR ABILITY TO FOLLOW DIRECTIONS. ASSIST TO SHOWER. CLEAN BRIEF AND PANTS ON. ASSIST TO CHAIR. ASSESSMENT COMPLETED. MIRALAX HELD DUE TO LARGE LOOSE STOOL. DR. FLEMING IN TO SEE PATIENT. DAUGHTER AND SPOUSE IN ROOM WELL. CALL LIGHT IN REACH.
--- NOTE | 2022-10-21 10:19 | NUR ---
PATIENT IN BED AFTER USING RESTROOM AND EATING BREAKFAST. VITALS AND I/O'S COPMPLETED. FAMILY IN ROOM. CALL LIGHT WITHIN REACH.
--- NOTE | 2022-10-21 14:28 | NUR ---
Therapist reviewed last PT treatment note, with it stating that patient appeared to be safe to return home with help from . Checked with RN and RN requested that PT still check in today. Patient sleeping and therapy was deferred twice. Will check in with staff weapons officer 10/22/22.
--- NOTE | 2022-10-21 14:44 | NUR ---
VITALS OBTAINED. ASSIST TO PLACE CPAP ON PATIENT SO SHE MAY REST. DENIES OTHER NEEDS AT THIS TIME. CALL LIGHT IN REACH. BED RAILS UP X2.
--- NOTE | 2022-10-21 17:56 | NUR ---
INCONTINENT OF LARGE, LOOSE BM THIS AM. SHOWERED WITH ASSISTANCE FROM STAFF. UP IN RECLINER FOR BREAKFAST AND SUPPER. NAPPED IN BED THIS AFTERNOON. REMAINS WITH MINIMAL ORAL INTAKE. DRINKS ENSURE WITH FAMILY PROMPTS. IMPROVED MENTAL CLARITY/ORIENTATION THIS AFTERNOON. REMAINS ON IV FLUIDS CONTINUOUSLY AND IV ANTIBIOTICS. NO PRN MEDICATIONS ADMINISTERED TODAY. FAMILY IN ROOM THROUGHOUT THE DAY.
--- NOTE | 2022-10-21 19:20 | NUR ---
ASSUMED CARE OF PATIENT UPON RECEIVING HANDOFF REPORT FROM DAY NURSE. PT SLEEPING IN CHAIR, EASILY AROUSED. NAD, NO C/O. PRESENT IN ROOM. WILL CONTINUE TO MONITOR AND FOLLOW POC.
--- NOTE | 2022-10-22 07:00 | NUR ---
Bed alarm sounding. Spouse assisting patient to edge of bed. This nurse assist to bedside commode. Incontinent of moderate amount of soft stool. Continent of stool and urine mixed. Returns to bed. Spouse remains at bedside. Oxygen replaced. Continuous pulse ox in place. Report from RITCHIE To.
--- NOTE | 2022-10-22 08:51 | NUR ---
2 PERSON ASSIST TO BATHROOM USING WALKER. DIFFICULTY FOLLOWING DIRECTION. SPOUSE REMAINS IN ROOM. UP TO RECLINER AFTER AMBULATING TO BATHROOM.
[2022-10-22] MEDS ORDERED: MEGESTROL ACETA40 MG PO (13:38)
[2022-10-22] MEDS ORDERED: LEVOTHYROXINE50 MCG PO (13:45)
== END 2022-10-22 15:15 | disposition home or self-care (01) | DRG 193 ==
LOC: ED 13:51 → MS 10-16 00:16 → CCU 10-16 00:16 → MS 10-19 14:00
PROVIDERS: ADMIT Family Medicine; ATTEND Internal Medicine
PROC: 3E033XZ Introduction of Vasopressor into Peripheral Vein, Percutaneous Approach (ICD-10-PCS; principal; 2022-10-16)
PROC: 30233N1 Transfusion of Nonautologous Red Blood Cells into Peripheral Vein, Percutaneous Approach (ICD-10-PCS; 2022-10-16)
DX: J18.9 Pneumonia, unspecified organism (principal); G93.41 Metabolic encephalopathy; J96.21 Acute and chronic respiratory failure with hypoxia; R64 Cachexia; C34.90 Malignant neoplasm of unspecified part of unspecified bronchus or lung; N39.0 Urinary tract infection, site not specified; C50.912 Malignant neoplasm of unspecified site of left female breast; Z68.31 Body mass index [BMI] 31.0-31.9, adult; Z20.822 Contact with and (suspected) exposure to COVID-19; D63.0 Anemia in neoplastic disease; K21.00 Gastro-esophageal reflux disease with esophagitis, without bleeding; E83.42 Hypomagnesemia; I95.9 Hypotension, unspecified; Z96.652 Presence of left artificial knee joint; Z90.710 Acquired absence of both cervix and uterus; Z88.8 Allergy status to other drugs, medicaments and biological substances; Z79.899 Other long term (current) drug therapy
CPT/HCPCS: 36415; 36430; 70450; 71045; 71260; 80048; 80053; 80202; 81001; 82803; 83605; 83735; 83880; 84484; 85025; 85379; 86850; 86900; 86901; 86922; 87040; 87502; 93005; 93010; 94640; 94760; 94762; 96374; 96375; 97116; 97162; 97167; 97530; 97535; 99285-25; A9270; C9803; G0480; J0696; J1200; J1650; J1885; J1953; J2405; J2543; J2930; J3370; J7030; J7060; P9016; Q9967; U0003